=== PATIENT | male | born 1955 | race Caucasian/White ===

== ENCOUNTER → 2016-12-17 | Outpatient (CLI) | payer OTHER ==
[~2016-12-17] MED LIST: BUSPIRONE30 MG PO; CEPHALEXIN500 M1 PO; EFFEXOR XR150 M1 PO; EFFEXOR75 MG PO; GABAPENTIN600 MG PO; HYDROCODONE BIT1 T11 PO; HYZAAR 12.5 MG-1 TA1 PO; LOMOTIL 0.025 M1 TA1 PO; LOSARTAN POTASS1 TA5 PO; MOTRIN800 MG PO; NAPROSYN500 MG PO; NEURONTIN300 MG PO; NORCO 5-325 TA1 EACH PO; PERCOCET 325 MG1 TA7 PO; PRAVACHOL40 MG PO; REXULTI2 MG PO; TRAMADOL HCL50 MG PO; TRAZADONE HYDR100 MG PO; VALIUM10 MG PO; VALIUM2 MG PO; VICODIN 5/500 505 MG PO; VICODIN ES 7501 TAB PO; VOLTAREN50 MG PO; WELLBUTRIN XL150 MG PO; WELLBUTRIN XL300 MG PO; XANAX2 MG PO; ZOFRAN ODT4 MG SL; ZOFRAN4 MG PO
[2016-12-17 14:58] LABS: HEMOGLOBIN 15.3 g/dl (14.0-18.0); MEAN CELL VOLUME 92.6 fl (80.0-94.0); MEAN CORPUSCULAR HGB 31.5 pg (27.0-31.0); MEAN PLATELET VOLUME 9.6 fl (9.6-12.3); PLATELET COUNT AUTOMATED 202 10*3/uL (130-400); RED BLOOD COUNT 4.86 10*6/uL (4.50-5.90); RED CELL DISTRI WIDTH 12.1 % (0-14.5); WHITE BLOOD COUNT 11.8 10*3/uL (4.8-10.8)
[2016-12-17 15:23] LABS: BASOPHIL # 0.1 10*3/uL (0-0.1); BASOPHILS 1 % (0-1); EOSINOPHIL # 0.1 10*3/uL (0-0.4); EOSINOPHILS 1 % (1-4); LYMPHOCYTE # 6.6 10*3/uL (1.3-4.4); MONOCYTE # 0.8 10*3/uL (0.1-1.0); NEUTROPHIL # 4.1 10*3/uL (2.3-7.9); NEUTROPHILS 35 % (47-73); TOTAL CELLS COUNTED 100 #CELLS
[2016-12-17 15:24] LABS: PLATELET SUFFICIENCY NORMAL (NORMAL)
[2016-12-17 15:27] LABS: ALBUMIN 3.8 gm/dl (3.1-4.5); ALKALINE PHOSPHATASE 78 U/L (45-117); BILIRUBIN, TOTAL 0.2 mg/dl (0.2-1.0); BUN 14 mg/dl (7-24); CARBON DIOXIDE 32 mmol/L (21-32); CHLORIDE 101 mmol/L (98-107); EST GLOM FILT AFRICAN AMERICAN > 60 ml/min; GLUCOSE 106 mg/dL (65-99); LDH 164 U/L (87-241); POTASSIUM 4.6 mmol/L (3.5-5.1); SGOT/AST 21 IU/L (3-35); SGPT/ALT 44 U/L (12-78); SODIUM 140 mmol/L (136-145); TOTAL PROTEIN 7.2 gm/dL (6.4-8.2)
== END | disposition home or self-care (01) ==
LOC: LAB 14:41
PROVIDERS: Internal Medicine Hematology & Oncology
DX: D72.820 Lymphocytosis (symptomatic) (principal); C85.80 Other specified types of non-Hodgkin lymphoma, unspecified site; I82.529 Chronic embolism and thrombosis of unspecified iliac vein

== ENCOUNTER → 2017-01-18 | Outpatient (CLI) | payer OTHER ==
[2017-01-18 15:22] LABS: HEMATOCRIT 43.2 % (42.0-52.0); HEMOGLOBIN 14.2 g/dl (14.0-18.0); MEAN CELL VOLUME 94.5 fl (80.0-94.0); MEAN CORPUSCULAR HGB 31.1 pg (27.0-31.0); MEAN CORPUSCULAR HGB CONC 32.9 g/dl (33.0-37.0); MEAN PLATELET VOLUME 10.4 fl (9.6-12.3); PLATELET COUNT AUTOMATED 193 10*3/uL (130-400); RED BLOOD COUNT 4.57 10*6/uL (4.50-5.90); RED CELL DISTRI WIDTH 12.6 % (0-14.5); WHITE BLOOD COUNT 11.4 10*3/uL (4.8-10.8)
[2017-01-18 15:30] LABS: ALBUMIN 3.8 gm/dl (3.1-4.5); ALKALINE PHOSPHATASE 78 U/L (45-117); BILIRUBIN, TOTAL 0.3 mg/dl (0.2-1.0); BUN 12 mg/dl (7-24); CARBON DIOXIDE 31 mmol/L (21-32); CHLORIDE 101 mmol/L (98-107); EST GLOM FILT AFRICAN AMERICAN > 60 ml/min; GLUCOSE 87 mg/dL (65-99); LDH 157 U/L (87-241); POTASSIUM 4.7 mmol/L (3.5-5.1); SGOT/AST 18 IU/L (3-35); SGPT/ALT 26 U/L (12-78); SODIUM 141 mmol/L (136-145); TOTAL PROTEIN 6.9 gm/dL (6.4-8.2)
[2017-01-18 17:05] LABS: BASOPHIL # 0.1 10*3/uL (0-0.1); BASOPHILS 1 % (0-1); EOSINOPHIL # 0.5 10*3/uL (0-0.4); EOSINOPHILS 4 % (1-4); LYMPHOCYTE # 6.2 10*3/uL (1.3-4.4); MONOCYTE # 0.5 10*3/uL (0.1-1.0); NEUTROPHIL # 4.2 10*3/uL (2.3-7.9); NEUTROPHILS 37 % (47-73); TOTAL CELLS COUNTED 100 #CELLS
[2017-01-18 17:06] LABS: PLATELET SUFFICIENCY NORMAL (NORMAL)
== END | disposition home or self-care (01) ==
LOC: LAB 14:00
PROVIDERS: Internal Medicine Hematology & Oncology
DX: I82.5Z9 Chronic embolism and thrombosis of unspecified deep veins of unspecified distal lower extremity (principal); C85.80 Other specified types of non-Hodgkin lymphoma, unspecified site; D72.820 Lymphocytosis (symptomatic)

== ENCOUNTER → 2017-03-21 | Outpatient (CLI) | payer MEDICARE ==
[2017-03-21 14:38] LABS: BASO # 0.1 10*3/uL (0.0-0.1); BASO % 0.6 % (0.0-1.0); EOS # 0.2 10*3/uL (0.0-0.4); EOS % 2.1 % (1.0-4.0); HEMATOCRIT 46.4 % (42.0-52.0); HEMOGLOBIN 15.4 g/dl (14.0-18.0); LYMPH # 4.8 10*3/uL (1.3-4.4); LYMPH % 41.8 % (27.0-41.0); MEAN CELL VOLUME 93.4 fl (80.0-94.0); MEAN CORPUSCULAR HGB CONC 33.2 g/dl (33.0-37.0); MEAN PLATELET VOLUME 9.7 fl (9.6-12.3); MONO # 0.7 10*3/uL (0.1-1.0); MONO % 5.8 % (3.0-9.0); NEUT # 5.7 10*3/uL (2.3-7.9); NEUT % 49.5 % (47.0-73.0); PLATELET COUNT AUTOMATED 192 10*3/uL (130-400); RED BLOOD COUNT 4.97 10*6/uL (4.50-5.90); RED CELL DISTRI WIDTH 12.2 % (0-14.5); WHITE BLOOD COUNT 11.5 10*3/uL (4.8-10.8)
[2017-03-21 15:10] LABS: ALBUMIN 3.9 gm/dl (3.1-4.5); ALKALINE PHOSPHATASE 96 U/L (45-117); BILIRUBIN, TOTAL 0.2 mg/dl (0.2-1.0); BUN 14 mg/dl (7-24); CARBON DIOXIDE 31 mmol/L (21-32); CHLORIDE 101 mmol/L (98-107); EST GLOM FILT AFRICAN AMERICAN > 60 ml/min; GLUCOSE 129 mg/dL (65-99); LDH 130 U/L (87-241); POTASSIUM 4.9 mmol/L (3.5-5.1); SGOT/AST 16 IU/L (3-35); SGPT/ALT 33 U/L (12-78); SODIUM 143 mmol/L (136-145); TOTAL PROTEIN 7.5 gm/dL (6.4-8.2)
== END | disposition home or self-care (01) ==
LOC: LAB 14:17
PROVIDERS: Internal Medicine Hematology & Oncology
DX: C85.80 Other specified types of non-Hodgkin lymphoma, unspecified site (principal); I82.529 Chronic embolism and thrombosis of unspecified iliac vein; D72.820 Lymphocytosis (symptomatic)

== ENCOUNTER → 2017-05-19 | Outpatient (CLI) | payer MEDICARE ==
[2017-05-19 13:20] LABS: BASO # 0.1 10*3/uL (0.0-0.1); BASO % 0.4 % (0.0-1.0); EOS # 0.1 10*3/uL (0.0-0.4); EOS % 1.1 % (1.0-4.0); HEMATOCRIT 47.1 % (42.0-52.0); HEMOGLOBIN 15.8 g/dl (14.0-18.0); LYMPH # 4.6 10*3/uL (1.3-4.4); LYMPH % 37.8 % (27.0-41.0); MEAN CELL VOLUME 93.8 fl (80.0-94.0); MEAN CORPUSCULAR HGB 31.5 pg (27.0-31.0); MEAN CORPUSCULAR HGB CONC 33.5 g/dl (33.0-37.0); MEAN PLATELET VOLUME 10.1 fl (9.6-12.3); MONO # 0.8 10*3/uL (0.1-1.0); MONO % 6.8 % (3.0-9.0); NEUT # 6.5 10*3/uL (2.3-7.9); NEUT % 53.7 % (47.0-73.0); PLATELET COUNT AUTOMATED 193 10*3/uL (130-400); RED BLOOD COUNT 5.02 10*6/uL (4.50-5.90); WHITE BLOOD COUNT 12.1 10*3/uL (4.8-10.8)
[2017-05-19 13:50] LABS: ALBUMIN 4.1 gm/dl (3.1-4.5); BILIRUBIN, TOTAL 0.5 mg/dl (0.2-1.0); BUN 11 mg/dl (7-24); CARBON DIOXIDE 30 mmol/L (21-32); CHLORIDE 99 mmol/L (98-107); EST GLOM FILT AFRICAN AMERICAN > 60 ml/min; GLUCOSE 100 mg/dL (65-99); POTASSIUM 4.6 mmol/L (3.5-5.1); SGOT/AST 19 IU/L (3-35); SGPT/ALT 30 U/L (12-78); SODIUM 137 mmol/L (136-145); TOTAL PROTEIN 7.8 gm/dL (6.4-8.2)
[2017-05-19 13:52] LABS: ALKALINE PHOSPHATASE 105 U/L (45-117); LDH 127 U/L (87-241)
== END | disposition home or self-care (01) ==
LOC: LAB 12:37
PROVIDERS: Internal Medicine Hematology & Oncology
DX: C85.80 Other specified types of non-Hodgkin lymphoma, unspecified site (principal); I82.529 Chronic embolism and thrombosis of unspecified iliac vein; D72.820 Lymphocytosis (symptomatic)

== ENCOUNTER → 2017-07-27 | Outpatient (CLI) | payer MEDICARE ==
[2017-07-27 12:49] LABS: HEMOGLOBIN 13.4 g/dl (14.0-18.0); MEAN CELL VOLUME 95.5 fl (80.0-94.0); MEAN CORPUSCULAR HGB CONC 33.5 g/dl (33.0-37.0); MEAN PLATELET VOLUME 9.7 fl (9.6-12.3); RED BLOOD COUNT 4.19 10*6/uL (4.50-5.90); RED CELL DISTRI WIDTH 12.4 % (0-14.5); WHITE BLOOD COUNT 8.4 10*3/uL (4.8-10.8)
[2017-07-27 13:16] LABS: ALBUMIN 3.4 gm/dl (3.1-4.5); ALKALINE PHOSPHATASE 109 U/L (45-117); BUN 8 mg/dl (7-24); CHLORIDE 98 mmol/L (98-107); CHOLESTEROL 201 mg/dL (<200); CREATININE 0.95 mg/dL (0.70-1.30); HDL CHOLESTEROL 44 mg/dl (40-60); LDL CHOLESTEROL 121 mg/dL (9-159); POTASSIUM 3.6 mmol/L (3.5-5.1); SGOT/AST 15 IU/L (3-35); SGPT/ALT 27 U/L (12-78); SODIUM 138 mmol/L (136-145); TOTAL PROTEIN 7.1 gm/dL (6.4-8.2); TRIGLYCERIDES 182 mg/dl (<150); VLDL CHOLESTEROL 36 mg/dL (6-40)
== END | disposition home or self-care (01) ==
LOC: LAB 12:15
PROVIDERS: Family Medicine
DX: Z12.5 Encounter for screening for malignant neoplasm of prostate (principal); E78.00 Pure hypercholesterolemia, unspecified; Z79.899 Other long term (current) drug therapy

== ENCOUNTER 2017-09-13 12:43 | Emergency (ER) | payer MEDICARE ==
[~2017-09-13] VITALS: Ht 185.4 cm; Wt 74.8 kg
[~2017-09-13 12:43] MED LIST changes: +XANAX2 M1 PO; -XANAX2 MG PO
[2017-09-13 14:13] LABS: HEMATOCRIT 45.1 % (42.0-52.0); HEMOGLOBIN 15.2 g/dl (14.0-18.0); MEAN CELL VOLUME 91.9 fl (80.0-94.0); MEAN CORPUSCULAR HGB CONC 33.7 g/dl (33.0-37.0); MEAN PLATELET VOLUME 9.6 fl (9.6-12.3); PLATELET COUNT AUTOMATED 227 10*3/uL (130-400); RED BLOOD COUNT 4.91 10*6/uL (4.50-5.90); RED CELL DISTRI WIDTH 12.6 % (0-14.5); WHITE BLOOD COUNT 13.3 10*3/uL (4.8-10.8)
[2017-09-13 14:30] LABS: ACETAMINOPHEN (TYLENOL) 2.4 ug/ml (10-30); ALBUMIN 4.2 gm/dl (3.1-4.5); ALKALINE PHOSPHATASE 108 U/L (45-117); BUN 16 mg/dl (7-24); CHLORIDE 98 mmol/L (98-107); CREATININE 1.63 mg/dL (0.70-1.30); POTASSIUM 3.3 mmol/L (3.5-5.1); SGOT/AST 33 IU/L (3-35); SGPT/ALT 61 U/L (12-78); SODIUM 138 mmol/L (136-145); TOTAL PROTEIN 8.1 gm/dL (6.4-8.2)
[2017-09-13 14:35] LABS: ETHYL ALCOHOL < 3.0 mg/dl (<3)
[2017-09-13 14:36] LABS: BASOPHILS 1 % (0-1); PLATELET SUFFICIENCY NORMAL (NORMAL); TOTAL CELLS COUNTED 100 #CELLS
[2017-09-13 16:56] LABS: BILIRUBIN 1+ (NEGATIVE); BLOOD NEGATIVE (NEGATIVE); CLARITY CLEAR (CLEAR); COLOR YELLOW (YELLOW); GLUCOSE NEGATIVE (NEGATIVE); KETONE 1+ (NEGATIVE); LEUKO ESTERASE NEGATIVE (NEGATIVE); NITRITE NEGATIVE (NEGATIVE); PH 5.5 (5.0-9.0); SPECIFIC GRAVITY 1.025 (1.005-1.030); UROBILINOGEN 0.2 E.U./dl (0.2-1.0)
[2017-09-13 17:07] LABS: URINE AMPHETAMINES < 1000 (1000ng/ml); URINE BARBITURATES < 200 (200ng/ml); URINE BENZODIAZEPINES > 200 (200ng/ml); URINE CANNABINOIDS (THC) > 50 (50ng/ml); URINE COCAINE < 300 (300ng/ml); URINE METHADONE < 300 (300ng/ml); URINE OPIATES > 300 (300ng/ml)
[2017-09-13 17:15] LABS: URINE PHENCYCLIDINE < 25 (25ng/ml)
[2017-09-13 17:23] LABS: BACTERIA TRACE; EPITHELIAL CELLS 0-2
[2017-09-13] MEDS ORDERED: SUBOXONE 8 MG-1 EACH SL (20:05)
== END 2017-09-13 19:10 | disposition home health service (06) ==
LOC: ED 12:43
PROVIDERS: Physician Assistant
DX: F33.3 Major depressive disorder, recurrent, severe with psychotic symptoms (principal); F17.200 Nicotine dependence, unspecified, uncomplicated; F10.10 Alcohol abuse, uncomplicated; Z79.899 Other long term (current) drug therapy

== ENCOUNTER 2017-09-13 17:31 | Inpatient (IN) | payer MEDICARE ==
[~2017-09-13] VITALS: Ht 185.4 cm; Wt 111.1 kg
--- NOTE | ~2017-09-13 | DS ---
[place], [place] DISCHARGE SUMMARY NAME: LUIS VERMA UNIT #: [id number] ROOM: 309 DOCTOR: DUSTIN ROSE MD BIRTHDATE: [birth year] DOS: 09/19/2017 CHIEF COMPLAINT: "I am here because of depression and I keep blacking out." HISTORY OF PRESENT ILLNESS: This is a 62-year-old white male who presented to the Emergency Room at [facility] with a chief complaint of being increasingly depressed. He states that he has been hallucinating and seeing people. He has been under increased stress due to chronic pain and the recent of his son by drug overdose in the parking lot of the Emergency Room at [facility]. The patient himself has a lengthy psychiatric history and has been followed by for a long time and has been treated for depression and chronic pain. He also has a past history of substance abuse that includes opiates and alcohol. He reports poor sleep and appetite, energy, anhedonia, hopeless and helpless feelings, crying spells and inability to cope. He notes that he has pain on most days. He rates it as a 7-1/2 on a scale of 1-10 with 10 being the worst pain ever. He also has complaints of blacking out whenever he exerts himself. He was admitted to rule out organic factors to stabilize on medication, returning home when stable. PAST MEDICAL HISTORY: Remarkable for hyperlipidemia, hypertension, polysubstance abuse and depression. SUMMARY OF HOSPITAL COURSE: The patient was admitted to the unit where his Elavil was discontinued as well as Remeron and Vraylar. He was started on Zyprexa 2.5 in the morning and 5 mg at bedtime as well as Cymbalta 30 mg at bedtime. The Zyprexa was used to both augment the effectiveness of the antidepressant as well as decrease some of the psychotic symptoms. Cymbalta was rapidly titrated up to 60 mg b.i.d. to impact positively on depression, anxiety and pain control. With the combination of Cymbalta and Zyprexa, the patient had a significant improvement. Sleep and appetite normalized. He rated his pain now on a scale of 1-10 as of 3. He was able to function more independently and interact with others. He voiced positive plans for the future. He denied any type of side effects. There was no sedation, somnolence, extrapyramidal symptoms or tardive dyskinesia. He voiced a readiness to return home and was discharged on TuesdaySeptember 19. All of his prescriptions have been e-scribed. MENTAL STATUS AT DISCHARGE: The patient is alert and oriented to person, place, and time. Mood is euthymic. Affect appropriate. There are no symptoms of dinora or hypomania. There are no overt auditory or visual hallucinations. No delusions were voiced. No paranoia was present. Memory was fully intact. FINAL DIAGNOSES: Major depression, recurrent; dysthymic disorder and chronic pain syndrome. DISPOSITION: The patient is to return home. Scripts have been e-scribed. He will follow up with provider of his choice. [place], [place] DISCHARGE SUMMARY NAME: LUIS VERMA UNIT #: [id number] ROOM: 309 DOCTOR: DUSTIN ROSE MD BIRTHDATE: [birth year] DUSTIN ROSE MD CM:DISCHARG [id number] DUSTIN ROSE MD 09/19/17 1019 interface
--- NOTE | ~2017-09-13 | WRIGHTHP ---
[place], [place] PATIENT HISTORY AND PHYSICAL EXAM NAME: LUIS VERMA UNIT #: [id number] ROOM: 309 DOCTOR: DUSTIN ROSE MD BIRTHDATE: [birth year] DOS: 09/14/2017 CHIEF COMPLAINT: "I am here because of depression and I keep blacking out." HISTORY OF PRESENT ILLNESS: This is a 62-year-old white male who presented to the Emergency Room at [facility] with a chief complaint of being increasingly depressed. He also states that he has been hallucinating and seeing people. He has been under increasing stress that includes chronic pain and the recent of his son by drug overdose in the parking lot of the Emergency Room at [facility]. The patient himself has a lengthy psychiatric history and has been followed by Dr. Arellano for sometime for depression as well as for chronic pain. The patient has a past history of substance abuse with opiates and alcohol being his drugs of choice. The patient reports poor sleep and appetite, energy, anhedonia, hopeless, helpless feelings, crying spells, and inability to cope. From a physical standpoint, he complains of pain that is generalized in his body and most mornings rates it as a 7-1/2 on a scale of 1-10 with 10 being the worst pain ever. Additionally, he has complaints of blacking out when he exerts himself; however, he states that Dr. Godfrey has not done any medical workup on this. He is admitted now to rule out any type of organic factors to attempt to restabilize on medication, to engage in individual and parisi milieu activity, to set up substance abuse followup, returning home when stable. PAST MEDICAL HISTORY: Remarkable for hyperlipidemia, hypertension, polysubstance abuse, and depression. MENTAL STATUS: The patient is alert and oriented. Mood does seem to be depressed. Affect is rather flat and blunted and he is rather matter of fact in his presentation. This morning, he did not complain of any hallucinations and I did not see any dinora or hypomania present. There is no overt delusions or paranoia and for the most part, memory is intact. DIAGNOSIS: Major depression, recurrent and polysubstance dependence. PLAN: I will discontinue his Remeron and Vraylar that were started yesterday. I did discuss with him the possibility of starting Cymbalta in lieu of the Elavil that he had previously been on and he agreed to try that. We will start Cymbalta at a higher dose 30 mg twice daily with a plan to aggressively titrate upward. I will augment this with Zyprexa 2.5 mg in the morning and 5 mg at night to intensify the antidepressant effects as well as to aid sleep and decrease anxiety. I will give him his Xanax 2 mg 3 times a day. Follow up as far as how this is being prescribed in his outpatient pharmacy. I will have Dr. Arellano maintain the Xanax per his decision. I will check a Neurontin level in the morning. Discontinue p.r.n. Ativan, so he is not utilizing too many addictive agents. I will substitute hydroxyzine in its place. We will attempt to engage in individual and parisi milieu activity, set up outpatient followup as well as follow up for the substance abuse. [place], [place] PATIENT HISTORY AND PHYSICAL EXAM NAME: LUIS VERMA UNIT #: [id number] ROOM: 309 DOCTOR: DUSTIN ROSE MD BIRTHDATE: [birth year] DUSTIN ROSE MD CM:HISPHYS:PATIENT HISTORY AND PHYSICAL EXAMINATION 0 8 DUSTIN ROSE MD 09/14/1749 interface
--- NOTE | ~2017-09-13 | PR ---
[place], [place] PROGRESS NOTE NAME: LUIS VERMA UNIT #: [id number] ROOM: 309 DOCTOR: OTTONIEL RICCI,WERO BIRTHDATE: [birth year] DOS: 09/18/2017 CHIEF COMPLAINT: "I'm feeling better." SUBJECTIVE: The patient is seen this morning in dining area, readily engaged in conversation. States that he is feeling better. Mood has been better, did sleep better last night and he has some swelling on his left leg. He has a history of DVT in the past as per his account. So, we shall have a consult to rule out any DVTs and he has no other questions at the present. MENTAL STATUS EXAMINATION: The patient is alert, oriented to person, place, time. Fair eye contact, good conversation. Mood trending towards euthymia, somewhat anxious about his leg swelling, no dinora or hypomania. PLAN: We shall get a consult to rule out any DVTs and continue his medicines at present. Keep engaging him in parisi milieu. WERO ALCAZAR MD CM:TITUS [id number] WERO ALCAZAR MD 09/18/17 1316 interface
--- NOTE | ~2017-09-13 | PR ---
[place], [place] PROGRESS NOTE NAME: LUIS VERMA UNIT #: [id number] ROOM: 309 DOCTOR: QUENTIN BENAVIDEZ,MY BIRTHDATE: [birth year] DOS: 09/16/2017 CHIEF COMPLAINT: "I like my Vicodin back and not taking anything else." SUMMARY OF THE VISIT: The patient was interviewed in the dining area. States he slept well last night and pain has much improved, but still has some achiness at night, said he would want to have his Vicodin back because that is the only thing that has been worked for him. Denies any thoughts of harming himself or others. Denies seeing or hearing things. Still grieving his son's and would cheer up at times. MENTAL STATUS: Alert, awake and oriented x 3. Mood is trending towards euthymia with appropriate affect. There were no overt auditory or visual hallucinations. No delusions, nor paranoia noted. Memory for the most part is intact. There is no evidence of extrapyramidal symptoms or other side effects from medications. PLAN: We will increase Cymbalta to 60 mg b.i.d. to maximize his antidepressant and anti-pain affects. We will also continue Zyprexa 2.5 mg. We will continue to engage the patient in individual and parisi milieu activity with the plan is to return him home sometime on Tuesday. MY QUENTIN, DO DUSTIN ROSE MD CM:PNTRANS [id number] MY QUENTIN DO 09/16/17 1253 interface
--- NOTE | ~2017-09-13 | PR ---
[place], [place] PROGRESS NOTE NAME: LUIS VERMA UNIT #: [id number] ROOM: 309 DOCTOR: OTTONIEL RICCI,WERO BIRTHDATE: [birth year] DOS: CHIEF COMPLAINT: "I slept better last night" SUBJECTIVE: The patient is a 62-year-old male admitted with depression and polysubstance dependence, started on Cymbalta, which was titrated to 60 mg b.i.d. and Zyprexa as well. Today, he reports that he is still feeling depressed, though slept better last night. He had his breakfast this morning. He has been coming out to the dining area and has been socializing. MENTAL STATUS EXAMINATION: The patient is alert, oriented, readily engaged in conversation. Fair eye contact. Mood trending towards euthymia. Affect is still blunted. No evidence of psychosis at present. No dinora or hypomania. Memory is intact. PLAN: The patient is showing some improvement, though needs further stabilization. Shall continue his medicines, continue his care and keep engaging him in parisi milieu. WERO ALCAZAR MD CM:PNMICHELLE [id number] WERO ALCAZAR MD 09/17/17 1050 interface
--- NOTE | ~2017-09-13 | PR ---
[place], [place] PROGRESS NOTE NAME: LUIS VERMA UNIT #: [id number] ROOM: 309 DOCTOR: DUSTIN ROSE MD BIRTHDATE: [birth year] DOS: 09/15/2017 CHIEF COMPLAINT: "I slept better, I think I feel better, thank you." SUMMARY OF THE VISIT: The patient was interviewed as he was walking down the patel and then later as we sat down together in the group therapy room. He smiled upon approach and reported to me that he did sleep better and he feels slightly better than he did upon admission. He also rates his pain as lessening since the start of the Cymbalta and the Suboxone. He convincingly denies any medication side effects and no side effects are noted. There is no sedation, somnolence, lethargy, extrapyramidal symptoms or tardive dyskinesia. MENTAL STATUS: He is alert and oriented. Mood does seem to be trending towards euthymia. Affect is more appropriate. He was actually able to joke and laugh with me. There were no symptoms of hypomania or dinora. There were no overt auditory or visual hallucinations. No delusions, no paranoia. Memory for the most part is fully intact. PLAN: I will increase the Cymbalta from 30 mg twice daily to 30 mg in the morning and 60 mg at bedtime to attempt to maximize its antidepressant and antipain effects. I likewise will simultaneously increase the Zyprexa to 2.5 mg in the morning and 7.5 mg at bedtime to augment the effectiveness of the Cymbalta. We will continue to engage in individual and parisi milieu activity with the plan to return home or the least restrictive environment when psychiatrically stable. DUSTIN ROSE MD CM:PNTRANS [id number] DUSTIN RSOE MD 09/15/17 1108 interface
[2017-09-13 20:00] VITALS: BP 160/87
[2017-09-13] MEDS ORDERED: SUBOXONE 8 MG-1 EACH SL (20:05)
[2017-09-13 20:08] VITALS: BP 160/87
[2017-09-14 07:54] LABS: ALBUMIN 3.3 gm/dl (3.1-4.5); CREATININE 1.48 mg/dL (0.70-1.30); POTASSIUM 3.9 mmol/L (3.5-5.1); TOTAL PROTEIN 6.5 gm/dL (6.4-8.2)
[2017-09-14 08:00] VITALS: BP 119/72
[2017-09-14 09:58] LABS: VITAMIN D, 25-HYDROXY 36.3 ng/mL (30-100)
[2017-09-14 20:00] VITALS: BP 105/61
[2017-09-15 06:03] LABS: BUN 17 mg/dl (7-24); CHLORIDE 101 mmol/L (98-107); CREATININE 1.26 mg/dL (0.70-1.30); POTASSIUM 3.7 mmol/L (3.5-5.1); SODIUM 140 mmol/L (136-145)
[2017-09-15 08:50] VITALS: BP 106/51
[2017-09-15 20:43] VITALS: BP 108/59
[2017-09-16 07:50] VITALS: BP 117/69
[2017-09-16] MEDS ORDERED: DULOXETINE HCL60 MG PO ×2 (09:36)
[2017-09-16] MEDS ORDERED: ZYPREXA2.5 MG PO (09:36)
[2017-09-16] MEDS ORDERED: OLANZAPINE7.5 M1 PO (09:36)
[2017-09-16 20:00] VITALS: BP 107/62
[2017-09-17 08:01] VITALS: BP 110/60
[2017-09-17 12:45] VITALS: BP 144/88
[2017-09-17 19:50] VITALS: BP 101/66
[2017-09-18 03:06] LABS: NEURONTIN (GABAPENTIN) 10.8 ug/mL (4.0-16.0)
[2017-09-18 08:00] VITALS: BP 132/80
[2017-09-18 20:05] VITALS: BP 102/63
[2017-09-19 07:46] VITALS: BP 118/63
[2017-09-19] MEDS ORDERED: KEFLEX 500 MG E2 CAP PO (10:24)
== END 2017-09-19 12:04 | disposition home or self-care (01) | DRG 885 ==
LOC: 3N 17:31
PROVIDERS: Internal Medicine; ADMIT Psychiatry & Neurology Psychiatry
DX: F33.3 Major depressive disorder, recurrent, severe with psychotic symptoms (principal); N17.0 Acute kidney failure with tubular necrosis; L03.116 Cellulitis of left lower limb; F19.20 Other psychoactive substance dependence, uncomplicated; I10 Essential (primary) hypertension; E78.5 Hyperlipidemia, unspecified; E87.6 Hypokalemia; G47.00 Insomnia, unspecified; M79.7 Fibromyalgia; G89.21 Chronic pain due to trauma; F17.200 Nicotine dependence, unspecified, uncomplicated; F34.1 Dysthymic disorder; Z80.1 Family history of malignant neoplasm of trachea, bronchus and lung; Z86.718 Personal history of other venous thrombosis and embolism

== ENCOUNTER → 2017-10-25 | Outpatient (CLI) | payer MEDICARE ==
[~2017-10-25] MED LIST changes: +DULOXETINE HCL60 MG PO; +KEFLEX 500 MG E2 CAP PO; +OLANZAPINE7.5 M1 PO; +SUBOXONE 8 MG-1 EACH SL; +ZYPREXA2.5 MG PO
[2017-10-25 15:02] LABS: ALBUMIN 3.9 gm/dl (3.1-4.5); ALKALINE PHOSPHATASE 98 U/L (45-117); BUN 12 mg/dl (7-24); CHLORIDE 99 mmol/L (98-107); CHOLESTEROL 249 mg/dL (<200); CPK 32 U/L (39-308); CREATININE 1.05 mg/dL (0.70-1.30); HDL CHOLESTEROL 60 mg/dl (40-60); LDL CHOLESTEROL 150 mg/dL (9-159); POTASSIUM 4.3 mmol/L (3.5-5.1); SGOT/AST 14 IU/L (3-35); SGPT/ALT 22 U/L (12-78); SODIUM 137 mmol/L (136-145); TOTAL PROTEIN 7.4 gm/dL (6.4-8.2); TRIGLYCERIDES 194 mg/dl (<150); VLDL CHOLESTEROL 39 mg/dL (6-40)
== END | disposition home or self-care (01) ==
LOC: LAB 14:17
PROVIDERS: Family Medicine
DX: Z12.5 Encounter for screening for malignant neoplasm of prostate (principal); I10 Essential (primary) hypertension; E78.00 Pure hypercholesterolemia, unspecified; C85.90 Non-Hodgkin lymphoma, unspecified, unspecified site

== ENCOUNTER → 2017-11-17 | Outpatient (CLI) | payer MEDICARE ==
[2017-11-18 08:08] LABS: PROSTATE SPECIFIC AG FREE 0.45 ng/mL; PROSTATE SPECIFIC AG, SERUM 4.8 ng/mL (0.0-4.0)
== END | disposition home or self-care (01) ==
LOC: LAB 13:19
PROVIDERS: Family Medicine
DX: R97.20 Elevated prostate specific antigen [PSA] (principal)

== ENCOUNTER → 2018-07-10 | Outpatient (CLI) | payer MEDICARE ==
[2018-07-10 12:31] LABS: HEMATOCRIT 43.9 % (42.0-52.0); HEMOGLOBIN 14.6 g/dl (14.0-18.0); MEAN CORPUSCULAR HGB 31.3 pg (27.0-31.0); MEAN CORPUSCULAR HGB CONC 33.3 g/dl (33.0-37.0); RED BLOOD COUNT 4.67 10*6/uL (4.50-5.90); RED CELL DISTRI WIDTH 12.7 % (0-14.5); WHITE BLOOD COUNT 11.1 10*3/uL (4.8-10.8)
[2018-07-10 12:49] LABS: ALBUMIN 3.7 gm/dl (3.1-4.5); BUN 11 mg/dl (7-24); CHLORIDE 101 mmol/L (98-107); CHOLESTEROL 217 mg/dL (<200); CREATININE 0.96 mg/dL (0.70-1.30); POTASSIUM 4.1 mmol/L (3.5-5.1); SGOT/AST 15 IU/L (3-35); SGPT/ALT 39 U/L (12-78); SODIUM 138 mmol/L (136-145); TRIGLYCERIDES 126 mg/dl (<150); VLDL CHOLESTEROL 25 mg/dL (6-40)
[2018-07-10 12:54] LABS: ALKALINE PHOSPHATASE 94 U/L (45-117); CPK 31 U/L (39-308); HDL CHOLESTEROL 68 mg/dl (40-60); LDL CHOLESTEROL 124 mg/dL (9-159); TOTAL PROTEIN 7.3 gm/dL (6.4-8.2)
== END | disposition home or self-care (01) ==
LOC: LAB 11:27
PROVIDERS: Family Medicine
DX: Z12.5 Encounter for screening for malignant neoplasm of prostate (principal); E78.00 Pure hypercholesterolemia, unspecified; E55.9 Vitamin D deficiency, unspecified

== ENCOUNTER → 2018-10-09 | Outpatient (CLI) | payer OTHER ==
[~2018-10-09] MED LIST changes: +AMBIEN5 MG PO; +BUSPAR5 MG PO; +GABAPENTIN800 MG PO; +REXULTI3 MG PO; +VENLAFAXINE75 M1 PO
[2018-10-09 12:54] LABS: BASO # 0.1 10*3/uL (0.0-0.1); BASO % 0.5 % (0.0-1.0); EOS # 0.1 10*3/uL (0.0-0.4); EOS % 0.9 % (1.0-4.0); HEMATOCRIT 42.6 % (42.0-52.0); HEMOGLOBIN 14.7 g/dl (14.0-18.0); LYMPH # 4.7 10*3/uL (1.3-4.4); LYMPH % 42.9 % (27.0-41.0); MEAN CELL VOLUME 92.8 fl (80.0-94.0); MEAN CORPUSCULAR HGB CONC 34.5 g/dl (33.0-37.0); MEAN PLATELET VOLUME 9.9 fl (9.6-12.3); MONO # 0.8 10*3/uL (0.1-1.0); MONO % 6.8 % (3.0-9.0); NEUT # 5.4 10*3/uL (2.3-7.9); NEUT % 48.5 % (47.0-73.0); PLATELET COUNT AUTOMATED 216 10*3/uL (130-400); RED BLOOD COUNT 4.59 10*6/uL (4.50-5.90); RED CELL DISTRI WIDTH 12.9 % (0-14.5); WHITE BLOOD COUNT 11.1 10*3/uL (4.8-10.8)
[2018-10-09 13:24] LABS: ALBUMIN 3.6 gm/dl (3.1-4.5); BUN 13 mg/dl (7-24); CHLORIDE 103 mmol/L (98-107); CHOLESTEROL 211 mg/dL (<200); CREATININE 0.97 mg/dL (0.70-1.30); POTASSIUM 3.8 mmol/L (3.5-5.1); SGOT/AST 10 IU/L (3-35); SGPT/ALT 32 U/L (12-78); SODIUM 139 mmol/L (136-145); TRIGLYCERIDES 199 mg/dl (<150); VLDL CHOLESTEROL 40 mg/dL (6-40)
[2018-10-09 13:26] LABS: ALKALINE PHOSPHATASE 94 U/L (45-117); CPK 33 U/L (39-308); HDL CHOLESTEROL 62 mg/dl (40-60); LDL CHOLESTEROL 109 mg/dL (9-159)
== END | disposition home or self-care (01) ==
LOC: LAB 12:07
PROVIDERS: Family Medicine; Internal Medicine Hematology & Oncology
DX: I10 Essential (primary) hypertension (principal); C85.80 Other specified types of non-Hodgkin lymphoma, unspecified site; I82.5Z9 Chronic embolism and thrombosis of unspecified deep veins of unspecified distal lower extremity; D72.820 Lymphocytosis (symptomatic); K04.7 Periapical abscess without sinus; E78.00 Pure hypercholesterolemia, unspecified; E55.9 Vitamin D deficiency, unspecified

== ENCOUNTER 2018-11-08 15:03 | Inpatient (IN) | payer OTHER ==
--- NOTE | ~2018-11-08 | WRIGHTHP ---
[place], [place] PATIENT HISTORY AND PHYSICAL EXAM [id number] UN[facility] #: [id number] ROOM: 404 DOCTOR: SHRUTHI ROMANO MD BIRTHDATE: [birth year] DOS: 11/08/2018 HISTORY OF PRESENT ILLNESS: The patient is a 63-year-old gentleman with a past medical history of: 1. Mixed hyperlipidemia. 2. Benign essential hypertension. 3. Polysubstance abuse. 4. Depression. The patient presented to the Emergency Department at [facility] with recurrent nausea and vomiting starting this morning, feeling sick and weak. The patient was evaluated in the ER and found to be somewhat hypovolemic and with recurrent vomiting and not able to keep any food down, was recommended for admission for hydration and control of his symptoms. REVIEW OF SYSTEMS: GASTROINTESTINAL: recurrent nausea, vomiting. RESPIRATORY: No increasing shortness of breath or wheezing. CARDIOVASCULAR: No chest pain, no palpitations. ALLERGIES: No known drug allergies. PHYSICAL EXAMINATION: GENERAL: Alert, oriented x 3, in no visible distress. VITAL SIGNS: Blood pressure 148/70, heart rate 76 beats per minute, breathing 18 times per minute, temperature 98 degrees Fahrenheit. HEENT AND NECK: Extraocular movements are intact. Sclerae are anicteric. Oral mucosa is moist and clean. No obvious facial weakness. Neck is supple without any lymphadenopathy. No thyromegaly. No JVD. No carotid arterial bruits. LUNGS: Clear to auscultation. No wheezing. No rhonchi. CARDIOVASCULAR SYSTEM: Heart rate is regular in rate and rhythm. S1 and S2 normally audible. No significant murmur or any other abnormal cardiac sounds. ABDOMEN: Soft, nontender. No obvious organomegaly. Bowel sounds are present. No obvious herniation. EXTREMITIES: Without significant cyanosis or edema. Warm to touch. CENTRAL NERVOUS SYSTEM: Alert and oriented x 3. Cranial nerves II-XII are intact. Speech is normal. The patient is able to move all extremities. Normal muscle strength. Deep tendon reflexes are equal on both sides. Plantars were downgoing. IMPRESSION AND PLAN: 1. The patient with recurrent intractable nausea, vomiting and dehydration with hypovolemia, to be treated with hydration with normal saline and IV Zofran to control his vomiting and the patient will be followed closely. 2. Polysubstance abuse. The patient to be continued on Suboxone. 3. Major depression, recurrent. The patient is being continued on Zyprexa and Cymbalta. 4. Mixed hyperlipidemia, treated with pravastatin. 5. Benign essential hypertension. Blood pressure is to be monitored and treated accordingly. [place], [place] PATIENT HISTORY AND PHYSICAL EXAM NAME: LUIS VERMA UNIT #: [id number] ROOM: [facility] DOCTOR: SHRUTHI ROMANO MD BIRTHDATE: [birth year] SHRUTHI ROMANO MD CM:HISPHYS:PATIENT HISTORY AND PHYSICAL EXAMINATION 34 20 SHRUTHI ROMANO MD 11/08/182121 interface
--- NOTE | ~2018-11-08 | PR ---
[place], [place] PROGRESS NOTE NAME: LUIS VERMA UNIT #: [id number] ROOM: 405 DOCTOR: SHRUTHI ROMANO MD BIRTHDATE: [birth year] DOS: 11/09/2018 SUBJECTIVE: The patient is somewhat better, still has significant nausea, but no more vomiting, has barely been able to eat anything today, just a piece of toast. OBJECTIVE: GENERAL APPEARANCE: The patient is alert and oriented x 3, in no visible distress. VITAL SIGNS: Blood pressure 138/57, heart rate of 72 beats per minute, breathing normally, afebrile. HEENT AND NECK: Exam within normal limits. CARDIOVASCULAR SYSTEM: Heart rate is regular in rate and rhythm. S1 and S2 normally audible. LUNGS: Clear to auscultation. ABDOMEN: Some mild epigastric tenderness on deep palpation. No rigidity, guarding or rebound tenderness. EXTREMITIES: Without significant cyanosis or edema. IMPRESSION: 1. Leukocytosis with white cell count of 18,700 from uncertain etiology. I will continue to follow. I will check a CT of his abdomen and pelvis for further evaluation. 2. Mild right upper quadrant tenderness. I will consider cholecystitis and get surgical consult. 3. Mixed hyperlipidemia, followed and treated. 4. Benign essential hypertension. Blood pressure is being treated and controlled and monitored. 5. Polysubstance abuse. The patient remains on Suboxone. 6. Major depression, recurrent, mild to moderate, treated with olanzapine, which is Zyprexa and Cymbalta. SHRUTHI ROMANO MD CM:PNTRANS [id number] SHRUTHI ROMANO MD 11/10/18 0622 interface
--- NOTE | ~2018-11-08 | PR ---
[place], [place] PROGRESS NOTE NAME: LUIS VERMA UNIT #: [id number] ROOM: 405 DOCTOR: SHRUTHI ROMANO MD BIRTHDATE: [birth year] DOS: 11/10/2018 SUBJECTIVE: The patient is able to keep some food down, but he still has significant nausea. His vomiting has stopped. OBJECTIVE: GENERAL APPEARANCE: The patient is alert and oriented x 3, in no visible distress. VITAL SIGNS: Blood pressure 154/65, heart rate 75 beats per minute, breathing 18 times per minute, and temperature of 98 degrees Fahrenheit. HEENT AND NECK: Exam within normal limits. CARDIOVASCULAR SYSTEM: Heart rate is regular in rate and rhythm. S1 and S2 normally audible. LUNGS: Clear to auscultation. ABDOMEN: Soft, nontender. No obvious organomegaly. Bowel sounds are present. EXTREMITIES: Without significant cyanosis or edema. IMPRESSION: 1. Recurrent nausea, vomiting with normal CT scan of the abdomen and pelvis. I am checking a HIDA scan of the liver and gallbladder to look at the ejection fraction and see if patient has biliary dyskinesia and if he requires a cholecystectomy because of his persistent symptoms of nausea, which is intractable. Consulted Dr. Mcclain also on the case. 2. Suspicion of cholecystitis and gallbladder dysfunction. Surgery has been consulted. 3. Mixed hyperlipidemia, has been followed and treated. 4. Benign essential hypertension, being treated and controlled. 5. Polysubstance abuse. The patient stays on Suboxone. 6. Major depression, recurrent, moderate, treated with Zyprexa and Cymbalta. SHRUTHI ROMANO MD CM:PNTRANS 1252 0317 SHRUTHI ROMANO MD 11/11/18 0652 interface
--- NOTE | ~2018-11-08 | EKG ---
[place], [place] ELECTROCARDIOGRAM REPORT NAME: LUIS VERMA UNIT #: [id number] ROOM: 404 DOCTOR: FRAN DRAFT REPORT BIRTHDATE: [birth year] [facility] Test Date: 2018-11-08 Test Time: 16:08:13 Pat Name: LUIS VERMA Department: Room: 404 Gender: M Commercial Underwriter: [id number] : 1955 Requested By: JAMILA SIDDIQUI Order Number: [id number] Reading MD: Ten Nettles MD Measurements Intervals [place] Rate: 77 P: 49 TX: 156 QRS: -34 QRSD: 98 T: 50 QT: 406 QTc: 460 Interpretive Statements Sinus rhythm Atrial premature complex Left axis deviation Baseline wander in lead(s) V1 Electronically Signed On 11-09-2018 4:01:49 PST by Ten Nettles MD CM:EKGRPT:ELECTROCARDIOGRAM REPORT [id number] JAMILA JAIMES DRAFT REPORT JAMILA SIDDIQUI DO
--- NOTE | ~2018-11-08 | CON ---
[place], [place] REPORT OF CONSULTATION NAME: LUIS VERMA UNIT #: [id number] ROOM: 405 DOCTOR: GIUSEPPE ROMANO MD BIRTHDATE: [birth year] DOS: HISTORY OF PRESENT ILLNESS: The patient has presented with chief complaint of relentless epigastric distress, right upper quadrant pain. The patient had a panel of blood work done. Lactic acid was 4.8. Chest x-ray was normal. Rapid flu was nonreactive. CBC: White blood cell 14. H and H of 14 and 44. INR was 1.0. Comprehensive metabolic panel, electrolyte balanced, lipase within normal limits. BNP 171. Basic metabolic electrolytes balanced. Blood cultures were no growth. Labs and records have been reviewed. CT scan of the abdomen has not found any pathology of concern except diverticulosis diffusely throughout the colon without diverticulitis, which is of concern if it is a contributor to abdominal pain and possibility of subclinical diverticulitis; however, sonographic study of gallbladder is still today pending. PAST MEDICAL HISTORY: Associated with gastroenteritis, fibromyalgia, hypertension, hyperlipidemia, diverticulosis of severe degree. PAST SURGICAL HISTORY: Arthroplasty, left knee, history of cruciate ligament repair. SOCIAL HISTORY: Alcohol and tobacco. FAMILY HISTORY: Noncontributory directly to him. REVIEW OF SYSTEMS: HEENT: Denies double vision, blurred vision. RESPIRATORY: Denies shortness of breath. CARDIOVASCULAR: Denies chest pain. DIGESTIVE SYSTEM: No hematemesis, no hematochezia. Right upper quadrant pain, nonspecific abdominal pain. PHYSICAL EXAMINATION: VITAL SIGNS: Stable. HEENT: Nontraumatic. LUNGS: Vesicular breath sounds of both lungs. HEART: Normal sinus rhythm, no gallop, no murmur. ABDOMEN: Soft. No hepato-organomegaly. Nonspecific tenderness. EXTREMITIES: No cyanosis, no pedal edema. NEUROLOGIC: Alert, oriented to time, place, and person. LABORATORY DATA: Labs reviewed. Records reviewed. IMPRESSION: Nonspecific abdominal pain, severe diverticulosis. Labs have been reviewed. Records have been reviewed. Electrolytes and basic metabolic panel and comprehensive metabolic panel have been addressed. There is no evidence of liver function abnormalities. I trust that he is experiencing some nonspecific abdominal pain secondary to his presence of diverticulosis. If his sonogram of gallbladder come back, he has already told me that he would like to go home and follow up as outpatient and I agree with that because he could have subclinical diverticulitis and treatment of such may be needed. Therefore, although his [place], [place] REPORT OF CONSULTATION NAME: LUIS VERMA UNIT #: [id number] ROOM: 405 DOCTOR: ROSALINA RICCI,GIUSEPPE BIRTHDATE: [birth year] blood work belongs to yesterday, his CBC is going to be pending today. If white blood cell normal we will do that. Otherwise, he will be receiving antibiotics. GIUSEPPE ROMANO MD CM:CONSTR:REPORT OF CONSULTATION 1621 11/11/18 0751 interface
--- NOTE | ~2018-11-08 | DS ---
[place], [place] DISCHARGE SUMMARY NAME: LUIS VERMA UNIT #: [id number] ROOM: 405 DOCTOR: SHRUTHI ROMANO MD BIRTHDATE: [birth year] DOS: 11/11/2018 DISCHARGE DIAGNOSES: 1. The patient signed out against medical advice before he could be discharged. 2. Recurrent nausea, vomiting with normal CT scan of the abdomen and pelvis and ultrasound of the gallbladder. The patient requires a HIDA scan with gallbladder ejection fraction. 3. Suspicion of cholecystitis for which surgery was consulted. 4. Mixed hyperlipidemia. 5. Benign essential hypertension. 6. Polysubstance abuse. 7. Major depression, recurrent, moderate. 8. Mixed hyperlipidemia. HOSPITAL COURSE: The patient presented to [facility] with recurrent intractable nausea and vomiting starting on that morning. The patient is feeling sick and weak and was dehydrated and hypovolemic. The patient is unable to keep any food down after eating. The patient's vomiting finally resolved, but he still had significant nausea. The patient's CT of the abdomen and pelvis was performed and later on an ultrasound which were normal. I wanted to perform a HIDA scan with gallbladder ejection fraction to look for biliary dyskinesia, but the patient left against medical advice. Surgery was consulted to evaluate the patient also. ASSESSMENT AND PLAN: 1. Benign essential hypertension. Blood pressure was monitored and treated. 2. History of polysubstance abuse. The patient remained on Suboxone. 3. Major depression, recurrent, moderate, treated and asymptomatic with Cymbalta. 4. Mixed hyperlipidemia to be followed and treated as an outpatient. MANAGEMENT: The patient's management at the time of him leaving the hospital against medical advice were hydration with normal saline, Zofran, Phenergan, Cymbalta, Neurontin, Zocor, Zyprexa, Suboxone, Ambien, and Reglan. [place], [place] DISCHARGE SUMMARY NAME: LUIS VERMA UNIT #: [id number] ROOM: 405 DOCTOR: SHRUTHI ROMANO MD BIRTHDATE: [birth year] SHRUTHI ROMANO MD CM:DISCHARG [id number] SHRUTHI ROMANO MD 11/15/18 1047 interface
[~2018-11-08 15:03] MED LIST changes: -AMBIEN5 MG PO; -BUSPAR5 MG PO; -GABAPENTIN800 MG PO; -REXULTI3 MG PO; -VENLAFAXINE75 M1 PO
[2018-11-08 15:05] VITALS: BP 149/83
[2018-11-08 17:06] LABS: BASO % 0.3 % (0.0-1.0); EOS % 0.1 % (1.0-4.0); HEMATOCRIT 44.8 % (42.0-52.0); HEMOGLOBIN 14.8 g/dl (14.0-18.0); LYMPH # 2.8 10*3/uL (1.3-4.4); MEAN CORPUSCULAR HGB 30.4 pg (27.0-31.0); MEAN PLATELET VOLUME 9.6 fl (9.6-12.3); MONO # 0.6 10*3/uL (0.1-1.0); MONO % 4.1 % (3.0-9.0); NEUT # 10.6 10*3/uL (2.3-7.9); PLATELET COUNT AUTOMATED 248 10*3/uL (130-400); RED BLOOD COUNT 4.87 10*6/uL (4.50-5.90); RED CELL DISTRI WIDTH 12.6 % (0-14.5); WHITE BLOOD COUNT 14.1 10*3/uL (4.8-10.8)
[2018-11-08 17:16] LABS: ACT PARTIAL THROMBO TIME 21.2 SECONDS (20.8-31.5)
[2018-11-08 17:22] LABS: ALKALINE PHOSPHATASE 106 U/L (45-117); BUN 10 mg/dl (7-24); CHLORIDE 104 mmol/L (98-107); CREATININE 1.12 mg/dL (0.70-1.30); LIPASE 96 U/L (73-393); POTASSIUM 4.1 mmol/L (3.5-5.1); SGOT/AST 14 IU/L (3-35); SGPT/ALT 26 U/L (12-78); SODIUM 139 mmol/L (136-145); TOTAL PROTEIN 7.6 gm/dL (6.4-8.2)
[2018-11-08 17:25] LABS: TROPONIN I < 0.015 ng/ml (<0.045)
--- NOTE | 2018-11-08 18:30 | NUR ---
[place] 2.3 DR SIDDIQUI NOTIFIED
[2018-11-08 18:45] VITALS: BP 148/70
--- NOTE | 2018-11-08 18:45 | NUR ---
A 63, admitted to 4E, under the services of Dr. JUAN ANTONIO RICCI,SHRUTHI Lopez with a diagnosis of NAUSEA AND VOMITING. Chief complaint is N/V. Patient arrived via bed from ER. Monitor applied. Initial assessment completed. Vital signs taken and recorded. DR. JUAN ANTONIO RICCI,SHRUTHI Lopez notified of admission to the unit. Orders received. See assessment for past medical history, medications and allergies. Patient and/or family oriented to unit. [facility] visitation policy reviewed. Clothing/patient valuable form completed. SOWMYA FITZGERALD
--- NOTE | 2018-11-08 19:01 | NUR ---
ADMISSION COMPLETED. MARICRUZ MAST ASSUMED CARE.
[2018-11-08 20:00] VITALS: BP 158/91
--- NOTE | 2018-11-08 23:09 | NUR ---
NOTIFIED DR MAYBERRY OF PATIENT REQUESTING SLEEPING PILL. AND STATING HE STILL HAS NAUSEA DESPITE EARLIER ZOFRAN. NEW ORDERS RECEIVED.
[2018-11-09] VITALS: BP 174/84
--- NOTE | 2018-11-09 00:50 | NUR ---
HEART MONITOR REMOVED AND RETURNED TO FLOOR
--- NOTE | 2018-11-09 05:37 | NUR ---
PATIENT MEDICATED WITH PRN ZOFRAN ORDERED FOR C/O NAUSEA.
[2018-11-09 07:45] LABS: HEMATOCRIT 44.1 % (42.0-52.0); HEMOGLOBIN 14.7 g/dl (14.0-18.0); MEAN CELL VOLUME 93.4 fl (80.0-94.0); MEAN CORPUSCULAR HGB 31.1 pg (27.0-31.0); MEAN CORPUSCULAR HGB CONC 33.3 g/dl (33.0-37.0); MEAN PLATELET VOLUME 9.7 fl (9.6-12.3); PLATELET COUNT AUTOMATED 229 10*3/uL (130-400); RED BLOOD COUNT 4.72 10*6/uL (4.50-5.90); RED CELL DISTRI WIDTH 12.9 % (0-14.5); WHITE BLOOD COUNT 18.7 10*3/uL (4.8-10.8)
[2018-11-09 08:00] VITALS: BP 135/61
[2018-11-09 08:06] LABS: BUN 14 mg/dl (7-24); CHLORIDE 105 mmol/L (98-107); POTASSIUM 3.7 mmol/L (3.5-5.1); SODIUM 140 mmol/L (136-145)
[2018-11-09 08:35] LABS: PLATELET SUFFICIENCY NORMAL (NORMAL); TOTAL CELLS COUNTED 100 #CELLS
[2018-11-09] MEDS ORDERED: AMBIEN5 MG PO (09:23)
[2018-11-09] MEDS ORDERED: BUSPAR5 MG PO (09:24)
[2018-11-09] MEDS ORDERED: EFFEXOR XR150 M1 PO (09:54)
[2018-11-09] MEDS ORDERED: VENLAFAXINE75 M1 PO (09:55)
--- NOTE | 2018-11-09 11:37 | NUR ---
ZOFRAN GIVEN FOR C/O NAUSEA. WILL MONITOR.
[2018-11-09 12:00] VITALS: BP 153/77
--- NOTE | 2018-11-09 12:00 | NUR ---
Building Dismantler in to talk to patient. Patient states lives at home with his girlfriend. There are "few" steps in the home. Physician: Dr. Mark Godfrey Pharmacy: [facility] Home health services: none Patient's level of ADLs: INDEPENDENT Patient has working utilities: yes DME: none Follow-up physician's appointment after d/c: he prefers to make his own follow up appt after discharge Does patient want to access PORTAL?: no Discharge plan discussed with patient. He lives at home with his girlfriend. He is independent in his ADLs and ambulation. Discussed home health care services and he denies any home needs at this time. When medically stable he will be discharged to home. CHILO WASHINGTON
--- NOTE | 2018-11-09 12:40 | NUR ---
GIOVANNA HELPING, NOT FULLY EFFECTIVE. WILL MONITOR.
--- NOTE | 2018-11-09 13:30 | NUR ---
LEFT PK WITH DR. ROMANO IN RE:CONSULT
--- NOTE | 2018-11-09 13:43 | NUR ---
VISTARIL GIVEN FOR C/O ANXIETY. WILL MONITOR.
[2018-11-09 16:00] VITALS: BP 138/57
--- NOTE | 2018-11-09 16:07 | NUR ---
MEDICATED WITH PRN PO VISTARIL FOR C/O ANXIETY.
--- NOTE | 2018-11-09 16:28 | NUR ---
LEFT MESSAGE RE: CONSULT ON DR. ROMANO'S CELL PHONE.
--- NOTE | 2018-11-09 17:52 | NUR ---
PRN VISTARIL WAS SOMEWHAT EFFECTIVE; MEDICATED AT THIS TIME WITH PRN IV ZOFRAN FOR NAUSEA; PATIENT IS TRYING TO EAT SUPPER.
--- NOTE | 2018-11-09 18:01 | NUR ---
DR. VOGEL NOTIFIED OF CONSULT.
[2018-11-09 20:00] VITALS: BP 164/81
--- NOTE | 2018-11-09 20:30 | NUR ---
24 HR chart check completed.
--- NOTE | 2018-11-09 21:00 | NUR ---
RESTING IN BED WITH. RESPIRATIONS EASY. LUNGS DIMINISHED WITH RIGHT SIDED WHEEZES. PULSE OX 98% RA. SMOKERS COUGH NOTED. SCRATCHES NOTED TO ARMS, PATIENT STATES D/T DOG. IV FLUIDS INFUSING PER ORDER. CALL LIGHT WITHIN REACH. NO VOICED COMPLAINTS
--- NOTE | 2018-11-09 21:42 | NUR ---
MEDICATED WTH VISTARIL TO ASSIST WITH SLEEP. CALL LIGHT WITHIN REACH. WILL MONITOR FOR EFFECTIVENESS
--- NOTE | 2018-11-09 22:00 | NUR ---
REFUSED 2200 SUBOXONE AND NEURONTIN STATING IT UPSETS HIS STOMACH. EXPLAINED TO PATIENT REPORTED NAUSEA COULD ALSO BE COMTRIBUTED TO ABRUPTLY STOPPING SUBOXONE.
--- NOTE | 2018-11-09 23:54 | NUR ---
REQUESTED AND RECEIVED ZOFRAN PER PRN ORDER FOR COMPLAINTS OF NASEUA.
[2018-11-10] VITALS: BP 154/59
--- NOTE | 2018-11-10 02:00 | NUR ---
MEDS EFFECTIVE. SLEEPING. RESPIRATIONS EASY. IV FLUIDS MAINTAINED. CALL LIGHT WITHIN REACH
[2018-11-10 03:20] LABS: BILIRUBIN NEGATIVE (NEGATIVE); BLOOD NEGATIVE (NEGATIVE); CLARITY CLEAR (CLEAR); COLOR YELLOW (YELLOW); GLUCOSE NEGATIVE (NEGATIVE); KETONE 2+ (NEGATIVE); LEUKO ESTERASE NEGATIVE (NEGATIVE); NITRITE NEGATIVE (NEGATIVE); PH 6.5 (5.0-9.0); SPECIFIC GRAVITY 1.015 (1.005-1.030); UROBILINOGEN 0.2 E.U./dl (0.2-1.0)
[2018-11-10 03:25] LABS: WBC 0-2 wbc/hpf (0-5)
[2018-11-10] MEDS ORDERED: REXULTI3 MG PO (04:20)
[2018-11-10] MEDS ORDERED: GABAPENTIN800 MG PO (04:22)
--- NOTE | 2018-11-10 06:15 | NUR ---
PATIENT SLEEPING. AWAKENS EASILY. REFUSES TO ALLOW LAB TO DRAW BLOOD WORK STATING "MY ARM IS SORE." EXPLAINED TO PATIETN LABS NEED TO BE REASSESSED BUT PATIENT CONTINUES TO REFUSE. PROVIDED WITH BARIUM FOR CAT SCAN AND EXPLAINED IMPORTANCE OF DRINKING TO WHICH PATIENT REPLIES "IT AIN'T GONNA HAPPEN. I HAVEN'T EATEN IN 2 DAYS." AGAIN ATTEMPTED TO EXPLAIN TO PATIENT IMPORTANCE OF DRINKING PREP. PATIENT CONTINUES TO REFUSE
--- NOTE | 2018-11-10 07:30 | NUR ---
PATIENT DRANK 0% OF PREP.
[2018-11-10 08:00] VITALS: BP 172/81
--- NOTE | 2018-11-10 09:00 | NUR ---
Manager Cardiac in to see patient. No new needs or request at this time. He denies any home needs at this time. When medically stable he will be discharged to home.
[2018-11-10 12:00] VITALS: BP 154/65
[2018-11-10 16:00] VITALS: BP 138/70
[2018-11-10 18:14] LABS: HEMATOCRIT 40.6 % (42.0-52.0); HEMOGLOBIN 13.9 g/dl (14.0-18.0); MEAN CELL VOLUME 92.3 fl (80.0-94.0); MEAN CORPUSCULAR HGB 31.6 pg (27.0-31.0); MEAN CORPUSCULAR HGB CONC 34.2 g/dl (33.0-37.0); MEAN PLATELET VOLUME 9.9 fl (9.6-12.3); PLATELET COUNT AUTOMATED 178 10*3/uL (130-400); WHITE BLOOD COUNT 15.2 10*3/uL (4.8-10.8)
[2018-11-10 19:24] LABS: ATYPICAL LYMPHS 10 % (0-0); PLATELET SUFFICIENCY NORMAL (NORMAL); TOTAL CELLS COUNTED 100 #CELLS
[2018-11-10 20:00] VITALS: BP 117/65
--- NOTE | 2018-11-10 20:25 | NUR ---
AAOX3. IV FLUIDS INFUSING INTO IV IN RIGHT ANTECUBITAL; SITE ASYMPTOMATIC. PT. DENIES PAIN AT THIS TIME. VOICES NO C/O NAUSEA, VOMITING NOR DIARRHEA. CALL LIGHT WITHIN REACH.
--- NOTE | 2018-11-10 21:04 | NUR ---
MEDICATED WITH AMBIEN PER PT'S REQUEST FOR SLEEP.
--- NOTE | 2018-11-11 02:00 | NUR ---
RESTING IN BED WITH EYES CLOSED; KATE APPARENTLY EFFECTIVE. CALL LIGHT WITHIN REACH.
--- NOTE | 2018-11-11 06:00 | NUR ---
TOOK PO MEDICATION WITHOUT DIFFICULTY. CALL LIGHT WITHIN REACH.
[2018-11-11 06:29] LABS: HEMATOCRIT 38.5 % (42.0-52.0); HEMOGLOBIN 12.6 g/dl (14.0-18.0); MEAN CELL VOLUME 94.6 fl (80.0-94.0); MEAN CORPUSCULAR HGB CONC 32.7 g/dl (33.0-37.0); PLATELET COUNT AUTOMATED 154 10*3/uL (130-400); RED BLOOD COUNT 4.07 10*6/uL (4.50-5.90); WHITE BLOOD COUNT 11.5 10*3/uL (4.8-10.8)
[2018-11-11 06:42] LABS: BUN 14 mg/dl (7-24); CHLORIDE 109 mmol/L (98-107); CREATININE 0.87 mg/dL (0.70-1.30); POTASSIUM 3.5 mmol/L (3.5-5.1); SODIUM 143 mmol/L (136-145)
[2018-11-11 08:00] VITALS: BP 117/54
[2018-11-11 08:10] LABS: ATYPICAL LYMPHS 6 % (0-0); BASOPHILS 1 % (0-1); TOTAL CELLS COUNTED 100 #CELLS
[2018-11-11 08:18] LABS: PLATELET SUFFICIENCY NORMAL (NORMAL)
--- NOTE | 2018-11-11 08:24 | NUR ---
spoke with dr. glasgow in re: cta. pt is refusing, also refusing iv fliuds.
--- NOTE | 2018-11-11 12:08 | NUR ---
PT SHIRLEY AMA. OIL EXPLORATION ENGINEER AND DR. ROMANO NOTIFIED.
== END 2018-11-11 12:08 | disposition left against medical advice (07) | DRG 445 ==
LOC: ED 15:03 → 4E 17:48 → EDHOLD 17:48 → 4E 18:27
PROVIDERS: Emergency Medicine; Internal Medicine Gastroenterology; ADMIT Internal Medicine
DX: K81.9 Cholecystitis, unspecified (principal); F33.9 Major depressive disorder, recurrent, unspecified; Z80.1 Family history of malignant neoplasm of trachea, bronchus and lung; E86.0 Dehydration; F19.10 Other psychoactive substance abuse, uncomplicated; G89.29 Other chronic pain; M79.7 Fibromyalgia; Z96.662 Presence of left artificial ankle joint; E78.2 Mixed hyperlipidemia; K57.90 Diverticulosis of intestine, part unspecified, without perforation or abscess without bleeding; Z72.89 Other problems related to lifestyle

== ENCOUNTER → 2019-07-30 | Outpatient (CLI) | payer OTHER ==
[~2019-07-30] MED LIST changes: +AMBIEN5 MG PO; +BUSPAR5 MG PO; +GABAPENTIN800 MG PO; +REXULTI3 MG PO; +VENLAFAXINE75 M1 PO
[2019-07-30 11:51] LABS: HEMATOCRIT 46.7 % (42.0-52.0); HEMOGLOBIN 15.5 g/dl (14.0-18.0); MEAN CELL VOLUME 92.3 fl (80.0-94.0); MEAN CORPUSCULAR HGB 30.6 pg (27.0-31.0); MEAN CORPUSCULAR HGB CONC 33.2 g/dl (33.0-37.0); MEAN PLATELET VOLUME 10.5 fl (9.6-12.3); RED BLOOD COUNT 5.06 10*6/uL (4.50-5.90); RED CELL DISTRI WIDTH 12.6 % (0-14.5); WHITE BLOOD COUNT 10.1 10*3/uL (4.8-10.8)
[2019-07-30 12:15] LABS: ALBUMIN 3.7 gm/dl (3.1-4.5); ALKALINE PHOSPHATASE 83 U/L (45-117); BUN 11 mg/dl (7-24); CHLORIDE 103 mmol/L (98-107); CHOLESTEROL 198 mg/dL (<200); CPK 30 U/L (39-308); CREATININE 0.97 mg/dL (0.70-1.30); HDL CHOLESTEROL 53 mg/dl (40-60); LDL CHOLESTEROL 115 mg/dL (9-159); POTASSIUM 3.9 mmol/L (3.5-5.1); SGOT/AST 9 IU/L (3-35); SGPT/ALT 21 U/L (12-78); SODIUM 138 mmol/L (136-145); TOTAL PROTEIN 7.2 gm/dL (6.4-8.2); TRIGLYCERIDES 152 mg/dl (<150); VLDL CHOLESTEROL 30 mg/dL (6-40)
[2019-07-31 09:05] LABS: PROSTATE SPECIFIC AG FREE 0.83 ng/mL; PROSTATE SPECIFIC AG, SERUM 10.2 ng/mL (0.0-4.0)
== END | disposition home or self-care (01) ==
LOC: LAB 11:05
PROVIDERS: Family Medicine
DX: I10 Essential (primary) hypertension (principal); E78.00 Pure hypercholesterolemia, unspecified; R97.20 Elevated prostate specific antigen [PSA]

== ENCOUNTER → 2019-10-30 | Outpatient (CLI) | payer OTHER ==
[2019-10-30 14:21] LABS: BASO # 0.1 10*3/uL (0.0-0.1); BASO % 0.7 % (0.0-1.0); EOS # 0.1 10*3/uL (0.0-0.4); EOS % 1.1 % (1.0-4.0); HEMATOCRIT 44.5 % (42.0-52.0); HEMOGLOBIN 14.7 g/dl (14.0-18.0); LYMPH # 4.6 10*3/uL (1.3-4.4); MEAN CELL VOLUME 95.1 fl (80.0-94.0); MEAN CORPUSCULAR HGB 31.4 pg (27.0-31.0); MEAN PLATELET VOLUME 10.7 fl (9.6-12.3); MONO # 0.6 10*3/uL (0.1-1.0); MONO % 6.3 % (3.0-9.0); NEUT # 3.6 10*3/uL (2.3-7.9); NEUT % 39.7 % (47.0-73.0); PLATELET COUNT AUTOMATED 185 10*3/uL (130-400); RED BLOOD COUNT 4.68 10*6/uL (4.50-5.90); RED CELL DISTRI WIDTH 12.6 % (0-14.5); WHITE BLOOD COUNT 8.9 10*3/uL (4.8-10.8)
[2019-10-30 14:34] LABS: ALBUMIN 3.9 gm/dl (3.1-4.5); ALKALINE PHOSPHATASE 76 U/L (45-117); BUN 12 mg/dl (7-24); CHLORIDE 102 mmol/L (98-107); CHOLESTEROL 189 mg/dL (<200); CREATININE 1.05 mg/dL (0.70-1.30); HDL CHOLESTEROL 53 mg/dl (40-60); LDL CHOLESTEROL 110 mg/dL (9-159); POTASSIUM 4.6 mmol/L (3.5-5.1); SGOT/AST 10 IU/L (3-35); SGPT/ALT 23 U/L (12-78); SODIUM 136 mmol/L (136-145); TRIGLYCERIDES 130 mg/dl (<150); VLDL CHOLESTEROL 26 mg/dL (6-40)
== END | disposition home or self-care (01) ==
LOC: LAB 13:54
PROVIDERS: Nurse Practitioner Family
DX: I10 Essential (primary) hypertension (principal); E78.00 Pure hypercholesterolemia, unspecified; E55.9 Vitamin D deficiency, unspecified

== ENCOUNTER → 2019-11-20 | Outpatient (CLI) | payer OTHER | END | disposition home or self-care (01) | LOC: RAD 11:55 | DX: M54.9 Dorsalgia, unspecified (principal) ==

== ENCOUNTER 2020-05-04 17:29 | Emergency (ER) | payer OTHER ==
[~2020-05-04] VITALS: Ht 185.4 cm; Wt 108.9 kg
[2020-05-04 18:38] LABS: HEMATOCRIT 46.8 % (42.0-52.0); MEAN CELL VOLUME 85.9 fl (80.0-94.0); MEAN CORPUSCULAR HGB 29.7 pg (27.0-31.0); MEAN CORPUSCULAR HGB CONC 34.6 g/dl (33.0-37.0); PLATELET COUNT AUTOMATED 248 10*3/uL (130-400); RED BLOOD COUNT 5.45 10*6/uL (4.50-5.90); RED CELL DISTRI WIDTH 11.9 % (0-14.5); WHITE BLOOD COUNT 14.4 10*3/uL (4.8-10.8)
[2020-05-04 18:52] LABS: ALBUMIN 4.3 gm/dl (3.1-4.5); ALKALINE PHOSPHATASE 76 U/L (45-117); BUN 11 mg/dl (7-24); CHLORIDE 100 mmol/L (98-107); POTASSIUM 2.9 mmol/L (3.5-5.1); SGOT/AST 12 IU/L (3-35); SGPT/ALT 24 U/L (12-78); SODIUM 136 mmol/L (136-145); TOTAL PROTEIN 7.8 gm/dL (6.4-8.2)
[2020-05-04 18:53] LABS: ETHYL ALCOHOL < 3.0 mg/dl (<3)
[2020-05-04 18:54] LABS: ATYPICAL LYMPHS 1 % (0-0); TOTAL CELLS COUNTED 100 #CELLS
[2020-05-04 18:55] LABS: PLATELET SUFFICIENCY NORMAL (NORMAL)
[2020-05-04] MEDS ORDERED: PEPCID40 MG PO (23:55)
[2020-05-04] MEDS ORDERED: ZOFRAN4 MG PO (23:55)
[2020-05-05] MEDS ORDERED: KLOR-CON M1010 ME1 PO (00:08)
== END 2020-05-05 00:20 | disposition home or self-care (01) ==
LOC: ED 17:29
PROVIDERS: Emergency Medicine
DX: K29.20 Alcoholic gastritis without bleeding (principal); R11.2 Nausea with vomiting, unspecified; I10 Essential (primary) hypertension; F32.9 Major depressive disorder, single episode, unspecified; M10.9 Gout, unspecified; E78.00 Pure hypercholesterolemia, unspecified; F17.200 Nicotine dependence, unspecified, uncomplicated; Z79.899 Other long term (current) drug therapy

== ENCOUNTER → 2020-06-18 | Outpatient (CLI) | payer OTHER ==
[~2020-06-18] MED LIST changes: +KLOR-CON M1010 ME1 PO; +PEPCID40 MG PO
[2020-06-18 11:35] LABS: HEMATOCRIT 42.3 % (42.0-52.0); MEAN CELL VOLUME 92.2 fl (80.0-94.0); MEAN CORPUSCULAR HGB 29.8 pg (27.0-31.0); MEAN CORPUSCULAR HGB CONC 32.4 g/dl (33.0-37.0); MEAN PLATELET VOLUME 10.6 fl (9.6-12.3); RED BLOOD COUNT 4.59 10*6/uL (4.50-5.90); RED CELL DISTRI WIDTH 12.9 % (0-14.5); WHITE BLOOD COUNT 11.4 10*3/uL (4.8-10.8)
[2020-06-18 12:02] LABS: ALBUMIN 3.5 gm/dl (3.1-4.5); ALKALINE PHOSPHATASE 80 U/L (45-117); BUN 10 mg/dl (7-24); CHLORIDE 101 mmol/L (98-107); CHOLESTEROL 183 mg/dL (<200); CREATININE 0.79 mg/dL (0.70-1.30); HDL CHOLESTEROL 58 mg/dl (40-60); LDL CHOLESTEROL 97 mg/dL (9-159); SGOT/AST 23 IU/L (3-35); SGPT/ALT 21 U/L (12-78); SODIUM 138 mmol/L (136-145); TOTAL PROTEIN 7.1 gm/dL (6.4-8.2); TRIGLYCERIDES 142 mg/dl (<150); VLDL CHOLESTEROL 28 mg/dL (6-40)
== END | disposition home or self-care (01) ==
LOC: LAB 10:32
PROVIDERS: ATTEND Family Medicine
DX: E78.00 Pure hypercholesterolemia, unspecified (principal); I10 Essential (primary) hypertension; E55.9 Vitamin D deficiency, unspecified; F41.1 Generalized anxiety disorder; E74.00 Glycogen storage disease, unspecified

== ENCOUNTER → 2020-11-05 | Outpatient (CLI) | payer OTHER ==
[~2020-11-05] MED LIST changes: +COLACE100 MG PO; +DESVENLAFAXINE100 M3 PO; +HYDROCODONE-AC1 EACH PO; +SEROQUEL100 MG PO
[2020-11-05 13:49] LABS: HEMATOCRIT 45.9 % (42.0-52.0); MEAN CELL VOLUME 91.3 fl (80.0-94.0); MEAN CORPUSCULAR HGB 29.4 pg (27.0-31.0); MEAN CORPUSCULAR HGB CONC 32.2 g/dl (33.0-37.0); MEAN PLATELET VOLUME 10.2 fl (9.6-12.3); RED BLOOD COUNT 5.03 10*6/uL (4.50-5.90); RED CELL DISTRI WIDTH 12.3 % (0-14.5); WHITE BLOOD COUNT 9.7 10*3/uL (4.8-10.8)
[2020-11-05 14:05] LABS: ALBUMIN 3.9 gm/dl (3.1-4.5); ALKALINE PHOSPHATASE 76 U/L (45-117); BUN 8 mg/dl (7-24); CHLORIDE 106 mmol/L (98-107); CHOLESTEROL 202 mg/dL (<200); CPK 43 U/L (39-308); CREATININE 0.92 mg/dL (0.70-1.30); HDL CHOLESTEROL 57 mg/dl (40-60); LDL CHOLESTEROL 104 mg/dL (9-159); POTASSIUM 4.2 mmol/L (3.5-5.1); SGOT/AST 16 IU/L (3-35); SGPT/ALT 28 U/L (12-78); SODIUM 142 mmol/L (136-145); TOTAL PROTEIN 7.2 gm/dL (6.4-8.2); TRIGLYCERIDES 205 mg/dl (<150); VLDL CHOLESTEROL 41 mg/dL (6-40)
== END | disposition home or self-care (01) ==
LOC: LAB 13:07
PROVIDERS: ATTEND Family Medicine
DX: C61 Malignant neoplasm of prostate (principal); I10 Essential (primary) hypertension; E78.00 Pure hypercholesterolemia, unspecified; E55.9 Vitamin D deficiency, unspecified; Z79.899 Other long term (current) drug therapy

== ENCOUNTER 2021-01-19 12:17 | Inpatient (IN) | payer OTHER, MEDICAID ==
[~2021-01-19] VITALS: Ht 185.4 cm; Wt 108.9 kg
[~2021-01-19 12:17] MED LIST changes: -COLACE100 MG PO; -DESVENLAFAXINE100 M3 PO; -HYDROCODONE-AC1 EACH PO; -SEROQUEL100 MG PO
[2021-01-19 12:25] VITALS: BP 172/76
[2021-01-19 13:37] LABS: BASO % 0.3 % (0.0-1.0); EOS % 0.3 % (1.0-4.0); HEMATOCRIT 45.7 % (42.0-52.0); LYMPH # 2.7 10*3/uL (1.3-4.4); LYMPH % 23.6 % (27.0-41.0); MEAN CELL VOLUME 88.1 fl (80.0-94.0); MEAN CORPUSCULAR HGB 30.1 pg (27.0-31.0); MEAN CORPUSCULAR HGB CONC 34.1 g/dl (33.0-37.0); MEAN PLATELET VOLUME 9.3 fl (9.6-12.3); MONO # 0.9 10*3/uL (0.1-1.0); NEUT # 7.7 10*3/uL (2.3-7.9); NEUT % 67.5 % (47.0-73.0); PLATELET COUNT AUTOMATED 234 10*3/uL (130-400); RED BLOOD COUNT 5.19 10*6/uL (4.50-5.90); RED CELL DISTRI WIDTH 12.6 % (0-14.5); WHITE BLOOD COUNT 11.5 10*3/uL (4.8-10.8)
[2021-01-19 13:51] LABS: ALBUMIN 4.1 gm/dl (3.1-4.5); ALKALINE PHOSPHATASE 88 U/L (45-117); BUN 17 mg/dl (7-24); CHLORIDE 103 mmol/L (98-107); LIPASE 89 U/L (73-393); POTASSIUM 3.2 mmol/L (3.5-5.1); SGOT/AST 24 IU/L (3-35); SGPT/ALT 31 U/L (12-78); SODIUM 137 mmol/L (136-145); TOTAL PROTEIN 7.7 gm/dL (6.4-8.2)
[2021-01-19 13:52] LABS: TROPONIN I < 0.015 ng/ml (<0.045)
[2021-01-19 13:56] LABS: ACT PARTIAL THROMBO TIME 25.4 SECONDS (20.0-32.1)
[2021-01-19 17:50] VITALS: BP 142/88; BP 144/88
[2021-01-19 18:08] VITALS: BP 112/89
[2021-01-19] MEDS ORDERED: SEROQUEL100 MG PO (19:36)
[2021-01-20] VITALS: BP 104/50
[2021-01-20 06:21] LABS: HEMATOCRIT 40.1 % (42.0-52.0); MEAN CELL VOLUME 88.3 fl (80.0-94.0); MEAN CORPUSCULAR HGB 30.2 pg (27.0-31.0); MEAN CORPUSCULAR HGB CONC 34.2 g/dl (33.0-37.0); MEAN PLATELET VOLUME 9.6 fl (9.6-12.3); PLATELET COUNT AUTOMATED 200 10*3/uL (130-400); RED BLOOD COUNT 4.54 10*6/uL (4.50-5.90); RED CELL DISTRI WIDTH 12.6 % (0-14.5); WHITE BLOOD COUNT 13.2 10*3/uL (4.8-10.8)
[2021-01-20 06:55] LABS: ALBUMIN 3.4 gm/dl (3.1-4.5); ALKALINE PHOSPHATASE 73 U/L (45-117); BUN 21 mg/dl (7-24); CHLORIDE 109 mmol/L (98-107); CREATININE 1.05 mg/dL (0.70-1.30); POTASSIUM 2.8 mmol/L (3.5-5.1); SGOT/AST 15 IU/L (3-35); SGPT/ALT 24 U/L (12-78); SODIUM 141 mmol/L (136-145); TOTAL PROTEIN 6.5 gm/dL (6.4-8.2)
[2021-01-20 07:23] LABS: PLATELET SUFFICIENCY NORMAL (NORMAL); TOTAL CELLS COUNTED 100 #CELLS
[2021-01-20 07:51] VITALS: BP 110/58
[2021-01-20] MEDS ORDERED: DESVENLAFAXINE100 M3 PO (11:07)
[2021-01-20] MEDS ORDERED: HYDROCODONE-AC1 EACH PO (11:09)
[2021-01-20 16:00] VITALS: BP 170/83
[2021-01-20 20:00] VITALS: BP 118/64
[2021-01-21] VITALS (10 sets, daily range): BP systolic 121–172; BP diastolic 46–109
[2021-01-22] VITALS: BP 140/76
[2021-01-22 08:00] VITALS: BP 136/94
[2021-01-22] MEDS ORDERED: ZOFRAN4 MG PO (09:16)
[2021-01-22] MEDS ORDERED: COLACE100 MG PO (09:16)
== END 2021-01-22 11:27 | disposition home or self-care (01) | DRG 418 ==
LOC: ED 12:17 → EDHOLD 16:32 → 5E 16:32
PROVIDERS: Emergency Medicine; ADMIT Internal Medicine; ATTEND Internal Medicine
PROC: 0FT44ZZ Resection of Gallbladder, Percutaneous Endoscopic Approach (ICD-10-PCS; principal; 2021-01-21)
PROC: 3E0T3BZ Introduction of Anesthetic Agent into Peripheral Nerves and Plexi, Percutaneous Approach (ICD-10-PCS; 2021-01-21)
DX: K82.8 Other specified diseases of gallbladder (principal); F33.1 Major depressive disorder, recurrent, moderate; K81.2 Acute cholecystitis with chronic cholecystitis; K21.00 Gastro-esophageal reflux disease with esophagitis, without bleeding; E87.6 Hypokalemia; K21.9 Gastro-esophageal reflux disease without esophagitis; Z96.662 Presence of left artificial ankle joint; F41.1 Generalized anxiety disorder; E78.2 Mixed hyperlipidemia; I10 Essential (primary) hypertension; F51.01 Primary insomnia; Z80.1 Family history of malignant neoplasm of trachea, bronchus and lung

== ENCOUNTER → 2021-02-16 | Outpatient (CLI) | payer OTHER, MEDICAID ==
[~2021-02-16] MED LIST changes: +COLACE100 MG PO; +DESVENLAFAXINE100 M3 PO; +HYDROCODONE-AC1 EACH PO; +SEROQUEL100 MG PO
[2021-02-16 13:56] LABS: ALBUMIN 3.6 gm/dl (3.1-4.5); ALKALINE PHOSPHATASE 86 U/L (45-117); BUN 12 mg/dl (7-24); CHLORIDE 106 mmol/L (98-107); CHOLESTEROL 195 mg/dL (<200); CPK 53 U/L (39-308); CREATININE 0.83 mg/dL (0.70-1.30); LDL CHOLESTEROL 116 mg/dL (9-159); POTASSIUM 4.2 mmol/L (3.5-5.1); SGOT/AST 11 IU/L (3-35); SGPT/ALT 24 U/L (12-78); SODIUM 142 mmol/L (136-145); TOTAL PROTEIN 6.9 gm/dL (6.4-8.2); TRIGLYCERIDES 133 mg/dl (<150)
== END | disposition home or self-care (01) ==
LOC: LAB 12:54
PROVIDERS: ATTEND Family Medicine
DX: I10 Essential (primary) hypertension (principal); E78.00 Pure hypercholesterolemia, unspecified

== ENCOUNTER → 2021-04-17 | Outpatient (CLI) | payer OTHER ==
[2021-04-17 13:00] LABS: HEMATOCRIT 41.9 % (42.0-52.0); MEAN CELL VOLUME 92.5 fl (80.0-94.0); MEAN CORPUSCULAR HGB 30.2 pg (27.0-31.0); MEAN CORPUSCULAR HGB CONC 32.7 g/dl (33.0-37.0); MEAN PLATELET VOLUME 9.8 fl (9.6-12.3); RED BLOOD COUNT 4.53 10*6/uL (4.50-5.90); WHITE BLOOD COUNT 10.7 10*3/uL (4.8-10.8)
[2021-04-17 13:19] LABS: ALBUMIN 3.9 gm/dl (3.1-4.5); BUN 20 mg/dl (7-24); CHLORIDE 105 mmol/L (98-107); CHOLESTEROL 193 mg/dL (<200); CPK 668 U/L (39-308); CREATININE 0.86 mg/dL (0.70-1.30); POTASSIUM 3.7 mmol/L (3.5-5.1); SGOT/AST 26 IU/L (3-35); SGPT/ALT 21 U/L (12-78); SODIUM 139 mmol/L (136-145); TOTAL PROTEIN 6.9 gm/dL (6.4-8.2); TRIGLYCERIDES 109 mg/dl (<150)
[2021-04-17 13:20] LABS: ALKALINE PHOSPHATASE 76 U/L (45-117); LDL CHOLESTEROL 110 mg/dL (9-159)
== END | disposition home or self-care (01) ==
LOC: LAB 12:43
PROVIDERS: ATTEND Family Medicine
DX: I10 Essential (primary) hypertension (principal); E78.00 Pure hypercholesterolemia, unspecified

== ENCOUNTER → 2021-05-19 | Outpatient (CLI) | payer OTHER | END | disposition home or self-care (01) | LOC: LAB 12:44 | PROVIDERS: ATTEND Family Medicine | DX: T50.995A Adverse effect of other drugs, medicaments and biological substances, initial encounter (principal); R74.8 Abnormal levels of other serum enzymes ==

== ENCOUNTER → 2021-11-12 | Outpatient (CLI) | payer OTHER ==
[2021-11-12 14:40] LABS: HEMATOCRIT 44.6 % (42.0-52.0); MEAN CELL VOLUME 91.2 fl (80.0-94.0); MEAN CORPUSCULAR HGB 30.5 pg (27.0-31.0); MEAN CORPUSCULAR HGB CONC 33.4 g/dl (33.0-37.0); MEAN PLATELET VOLUME 9.8 fl (9.6-12.3); RED BLOOD COUNT 4.89 10*6/uL (4.50-5.90); RED CELL DISTRI WIDTH 12.4 % (0-14.5); WHITE BLOOD COUNT 8.4 10*3/uL (4.8-10.8)
[2021-11-12 15:02] LABS: ALBUMIN 3.8 gm/dl (3.1-4.5); ALKALINE PHOSPHATASE 92 U/L (45-117); BUN 16 mg/dl (7-24); CHLORIDE 104 mmol/L (98-107); CHOLESTEROL 277 mg/dL (<200); CREATININE 0.91 mg/dL (0.70-1.30); LDL CHOLESTEROL 186 mg/dL (9-159); POTASSIUM 3.9 mmol/L (3.5-5.1); SGOT/AST 16 IU/L (3-35); SGPT/ALT 23 U/L (12-78); SODIUM 140 mmol/L (136-145); TOTAL PROTEIN 7.2 gm/dL (6.4-8.2); TRIGLYCERIDES 197 mg/dl (<150)
[2021-11-12 15:33] LABS: VITAMIN D, 25-HYDROXY 45.5 ng/mL (30-100)
== END | disposition home or self-care (01) ==
LOC: LAB 13:23
PROVIDERS: ATTEND Family Medicine
DX: I10 Essential (primary) hypertension (principal); E78.00 Pure hypercholesterolemia, unspecified; E55.9 Vitamin D deficiency, unspecified

== ENCOUNTER → 2021-12-14 | Outpatient (CLI) | payer OTHER ==
[2021-12-14 13:11] LABS: HEMATOCRIT 44.4 % (42.0-52.0); MEAN CELL VOLUME 89.5 fl (80.0-94.0); MEAN CORPUSCULAR HGB CONC 33.6 g/dl (33.0-37.0); MEAN PLATELET VOLUME 9.4 fl (9.6-12.3); RED BLOOD COUNT 4.96 10*6/uL (4.50-5.90); RED CELL DISTRI WIDTH 12.5 % (0-14.5); WHITE BLOOD COUNT 8.9 10*3/uL (4.8-10.8)
[2021-12-14 13:29] LABS: BUN 11 mg/dl (7-24); CHLORIDE 103 mmol/L (98-107); CHOLESTEROL 210 mg/dL (<200); CREATININE 0.95 mg/dL (0.70-1.30); POTASSIUM 4.3 mmol/L (3.5-5.1); SGOT/AST 10 IU/L (3-35); SGPT/ALT 23 U/L (12-78); SODIUM 139 mmol/L (136-145); TOTAL PROTEIN 7.1 gm/dL (6.4-8.2); TRIGLYCERIDES 198 mg/dl (<150)
[2021-12-14 13:30] LABS: ALKALINE PHOSPHATASE 87 U/L (45-117); CPK 48 U/L (39-308); LDL CHOLESTEROL 121 mg/dL (9-159)
== END | disposition home or self-care (01) ==
LOC: LAB 12:38
PROVIDERS: ATTEND Family Medicine
DX: E78.00 Pure hypercholesterolemia, unspecified (principal)

== ENCOUNTER 2022-05-01 14:01 | Emergency (ER) | payer OTHER ==
[~2022-05-01] VITALS: Wt 111.1 kg
[2022-05-01 15:08] LABS: BASO % 0.3 % (0.0-1.0); EOS % 0.2 % (1.0-4.0); HEMATOCRIT 47.4 % (42.0-52.0); LYMPH # 2.8 10*3/uL (1.3-4.4); LYMPH % 22.9 % (27.0-41.0); MEAN CELL VOLUME 87.6 fl (80.0-94.0); MEAN CORPUSCULAR HGB 29.6 pg (27.0-31.0); MEAN CORPUSCULAR HGB CONC 33.8 g/dl (33.0-37.0); MEAN PLATELET VOLUME 9.7 fl (9.6-12.3); MONO # 0.8 10*3/uL (0.1-1.0); MONO % 6.6 % (3.0-9.0); NEUT # 8.5 10*3/uL (2.3-7.9); NEUT % 69.7 % (47.0-73.0); PLATELET COUNT AUTOMATED 245 10*3/uL (130-400); RED BLOOD COUNT 5.41 10*6/uL (4.50-5.90); RED CELL DISTRI WIDTH 12.2 % (0-14.5); WHITE BLOOD COUNT 12.1 10*3/uL (4.8-10.8)
[2022-05-01 15:32] LABS: ALKALINE PHOSPHATASE 96 U/L (45-117); BUN 21 mg/dl (7-24); CHLORIDE 106 mmol/L (98-107); CREATININE 1.05 mg/dL (0.70-1.30); LIPASE 135 U/L (73-393); POTASSIUM 3.9 mmol/L (3.5-5.1); SGOT/AST 20 IU/L (3-35); SGPT/ALT 33 U/L (12-78); SODIUM 138 mmol/L (136-145); TOTAL PROTEIN 7.5 gm/dL (6.4-8.2)
[2022-05-01 19:06] LABS: BILIRUBIN Negative (Negative); BLOOD Negative (Negative); CLARITY Clear (Clear); COLOR Yellow (Yellow); GLUCOSE Negative (Negative); KETONE 3+ (Negative); LEUKO ESTERASE Negative (Negative); NITRITE Negative (Negative); PH >= 9.0 (4.5-8.0)
[2022-05-01] MEDS ORDERED: ZOFRAN ODT PO (19:17)
[2022-05-01 19:33] LABS: BACTERIA TRACE; RBC 0-2 rbc/hpf (0-2); WBC 0-2 wbc/hpf (0-5)
== END 2022-05-01 20:36 | disposition home or self-care (01) ==
LOC: ED 14:01
PROVIDERS: Emergency Medicine
DX: R11.2 Nausea with vomiting, unspecified (principal); R53.83 Other fatigue; R10.9 Unspecified abdominal pain; E78.5 Hyperlipidemia, unspecified; I10 Essential (primary) hypertension; Z79.899 Other long term (current) drug therapy

== ENCOUNTER → 2022-08-18 | Outpatient (CLI) | payer OTHER ==
[~2022-08-18] MED LIST changes: +ZOFRAN ODT PO
[2022-08-18 12:42] LABS: HEMATOCRIT 42.8 % (42.0-52.0); MEAN CELL VOLUME 95.3 fl (80.0-94.0); MEAN CORPUSCULAR HGB 31.6 pg (27.0-31.0); MEAN CORPUSCULAR HGB CONC 33.2 g/dl (33.0-37.0); MEAN PLATELET VOLUME 8.7 fl (9.6-12.3); RED BLOOD COUNT 4.49 10*6/uL (4.50-5.90); WHITE BLOOD COUNT 7.1 10*3/uL (4.8-10.8)
[2022-08-18 13:00] LABS: ALKALINE PHOSPHATASE 93 U/L (45-117); BUN 9 mg/dl (7-24); CHLORIDE 103 mmol/L (98-107); CHOLESTEROL 176 mg/dL (<200); CPK 40 U/L (39-308); LDL CHOLESTEROL 80 mg/dL (9-159); POTASSIUM 4.7 mmol/L (3.5-5.1); SGOT/AST 22 IU/L (3-35); SGPT/ALT 32 U/L (12-78); SODIUM 137 mmol/L (136-145); TOTAL PROTEIN 7.3 gm/dL (6.4-8.2); TRIGLYCERIDES 182 mg/dl (<150)
[2022-08-18 13:26] LABS: VITAMIN D, 25-HYDROXY 50.8 ng/mL (30-100)
== END | disposition home or self-care (01) ==
LOC: LAB 12:24
PROVIDERS: ATTEND Family Medicine
DX: E78.00 Pure hypercholesterolemia, unspecified (principal); E55.9 Vitamin D deficiency, unspecified; I10 Essential (primary) hypertension; R53.83 Other fatigue; E74.00 Glycogen storage disease, unspecified; Z12.5 Encounter for screening for malignant neoplasm of prostate

== ENCOUNTER → 2022-11-02 | Outpatient (CLI) | payer OTHER ==
[2022-11-02 11:57] LABS: ALKALINE PHOSPHATASE 90 U/L (46-116); BUN 9 mg/dl (9-23); CHLORIDE 102 mmol/L (98-107); CHOLESTEROL 185 mg/dL (<200); LDL CHOLESTEROL 90 mg/dL (9-159); POTASSIUM 4.5 mmol/L (3.4-5.1); SGPT/ALT 18 U/L (10-49); TOTAL PROTEIN 7.1 gm/dL (6.0-8.0); TRIGLYCERIDES 197 mg/dl (<150)
== END | disposition home or self-care (01) ==
LOC: LAB 11:19
PROVIDERS: ATTEND Family Medicine
DX: E78.00 Pure hypercholesterolemia, unspecified (principal); E74.9 Disorder of carbohydrate metabolism, unspecified; Z79.899 Other long term (current) drug therapy

== ENCOUNTER → 2023-01-31 | Outpatient (CLI) | payer OTHER | END | disposition home or self-care (01) | LOC: NM 01:18 | PROVIDERS: ATTEND Radiology Radiation Oncology | DX: K31.84 Gastroparesis (principal); R10.9 Unspecified abdominal pain; C61 Malignant neoplasm of prostate ==

== ENCOUNTER → 2023-02-25 | Outpatient (CLI) | payer OTHER | END | disposition home or self-care (01) | LOC: NM 01:28 | PROVIDERS: ATTEND Radiology Radiation Oncology | DX: C61 Malignant neoplasm of prostate (principal) ==

== ENCOUNTER → 2023-03-15 | Outpatient (CLI) | payer OTHER ==
[2023-03-15 13:00] LABS: MEAN CELL VOLUME 95.4 fl (80.0-94.0); MEAN CORPUSCULAR HGB 31.7 pg (27.0-31.0); MEAN CORPUSCULAR HGB CONC 33.2 g/dl (33.0-37.0); MEAN PLATELET VOLUME 9.8 fl (9.6-12.3); RED BLOOD COUNT 4.61 10*6/uL (4.50-5.90); RED CELL DISTRI WIDTH 12.5 % (0-14.5); WHITE BLOOD COUNT 5.7 10*3/uL (4.8-10.8)
[2023-03-15 13:23] LABS: ALKALINE PHOSPHATASE 94 U/L (46-116); BUN 11 mg/dl (9-23); CHLORIDE 101 mmol/L (98-107); CHOLESTEROL 214 mg/dL (<200); CPK 49 U/L (34-171); LDL CHOLESTEROL 130 mg/dL (9-159); POTASSIUM 3.7 mmol/L (3.4-5.1); SGPT/ALT 12 U/L (10-49); TOTAL PROTEIN 6.9 gm/dL (6.0-8.0); TRIGLYCERIDES 155 mg/dl (<150)
[2023-03-19 19:06] LABS: FREE PSA <0.005 ng/mL (.)
== END | disposition home or self-care (01) ==
LOC: LAB 11:49
PROVIDERS: Family Medicine; ATTEND Radiology Radiation Oncology
DX: C61 Malignant neoplasm of prostate (principal); I10 Essential (primary) hypertension; F41.1 Generalized anxiety disorder; E74.00 Glycogen storage disease, unspecified; R32 Unspecified urinary incontinence; N40.0 Benign prostatic hyperplasia without lower urinary tract symptoms

== ENCOUNTER → 2023-06-07 | Outpatient (CLI) | payer OTHER ==
[2023-06-07 12:42] LABS: ALKALINE PHOSPHATASE 109 U/L (46-116); BUN 11 mg/dl (9-23); CHLORIDE 102 mmol/L (98-107); CHOLESTEROL 180 mg/dL (<200); CPK 67 U/L (34-171); LDL CHOLESTEROL 106 mg/dL (9-159); POTASSIUM 4.1 mmol/L (3.4-5.1); SGPT/ALT 11 U/L (10-49); TOTAL PROTEIN 6.9 gm/dL (6.0-8.0); TRIGLYCERIDES 158 mg/dl (<150)
== END | disposition home or self-care (01) ==
LOC: LAB 11:28
PROVIDERS: ATTEND Family Medicine
DX: I10 Essential (primary) hypertension (principal); E78.00 Pure hypercholesterolemia, unspecified

== ENCOUNTER 2023-07-19 12:35 | Emergency (ER) | payer OTHER ==
[~2023-07-19] VITALS: Ht 185.4 cm; Wt 113.4 kg
[~2023-07-19 12:35] MED LIST changes: -'XANAX1 MG PO; -MIRTAZAPINE15 M2 PO; -PENICILLIN VK500 MG PO
[2023-07-19] MEDS ORDERED: 'XANAX1 MG PO (12:44)
[2023-07-19] MEDS ORDERED: MIRTAZAPINE15 M2 PO (12:44)
[2023-07-19] MEDS ORDERED: TRAMADOL HCL50 MG PO (14:05)
[2023-07-19] MEDS ORDERED: PENICILLIN VK500 MG PO (14:05)
== END 2023-07-19 14:16 | disposition home or self-care (01) ==
LOC: ED 12:35
DX: K08.89 Other specified disorders of teeth and supporting structures (principal); I10 Essential (primary) hypertension; F32.A Depression, unspecified; E78.00 Pure hypercholesterolemia, unspecified; M10.9 Gout, unspecified; M19.90 Unspecified osteoarthritis, unspecified site; M79.7 Fibromyalgia; Z98.890 Other specified postprocedural states; F17.200 Nicotine dependence, unspecified, uncomplicated

== ENCOUNTER → 2023-07-19 | Outpatient (CLI) | payer OTHER ==
[~2023-07-19] MED LIST changes: +'XANAX1 MG PO; +MIRTAZAPINE15 M2 PO; +PENICILLIN VK500 MG PO
== END | disposition home or self-care (01) ==
LOC: LAB 12:19
PROVIDERS: ATTEND Radiology Radiation Oncology
DX: C61 Malignant neoplasm of prostate (principal)

== ENCOUNTER → 2023-09-16 | Outpatient (CLI) | payer OTHER ==
[~2023-09-16] MED LIST changes: +'XANAX1 MG PO; +MIRTAZAPINE15 M2 PO; +PENICILLIN VK500 MG PO
[2023-09-16 11:54] LABS: HEMATOCRIT 47.5 % (42.0-52.0); MEAN CELL VOLUME 94.8 fl (80.0-94.0); MEAN CORPUSCULAR HGB 30.5 pg (27.0-31.0); MEAN CORPUSCULAR HGB CONC 32.2 g/dl (33.0-37.0); MEAN PLATELET VOLUME 9.7 fl (9.6-12.3); RED BLOOD COUNT 5.01 10*6/uL (4.50-5.90); RED CELL DISTRI WIDTH 12.3 % (0-14.5); WHITE BLOOD COUNT 7.2 10*3/uL (4.8-10.8)
[2023-09-16 12:24] LABS: ALKALINE PHOSPHATASE 105 U/L (46-116); BUN 13 mg/dl (9-23); CHLORIDE 102 mmol/L (98-107); CHOLESTEROL 177 mg/dL (<200); CPK 41 U/L (34-171); LDL CHOLESTEROL 92 mg/dL (9-159); POTASSIUM 4.2 mmol/L (3.4-5.1); SGPT/ALT 14 U/L (5-49); TOTAL PROTEIN 7.1 gm/dL (6.0-8.0); TRIGLYCERIDES 206 mg/dl (<150)
[2023-09-16 12:26] LABS: VITAMIN D, 25-HYDROXY 66.2 ng/mL (30-100)
== END | disposition home or self-care (01) ==
LOC: LAB 11:38
PROVIDERS: ATTEND Family Medicine
DX: E74.00 Glycogen storage disease, unspecified (principal); K21.9 Gastro-esophageal reflux disease without esophagitis; E78.00 Pure hypercholesterolemia, unspecified; F41.1 Generalized anxiety disorder; E55.9 Vitamin D deficiency, unspecified; R53.83 Other fatigue

== ENCOUNTER → 2023-11-10 | Outpatient (CLI) | payer OTHER ==
[2023-11-10 12:24] LABS: HEMATOCRIT 47.5 % (42.0-52.0); MEAN CELL VOLUME 93.3 fl (80.0-94.0); MEAN CORPUSCULAR HGB 30.3 pg (27.0-31.0); MEAN CORPUSCULAR HGB CONC 32.4 g/dl (33.0-37.0); MEAN PLATELET VOLUME 9.1 fl (9.6-12.3); RED BLOOD COUNT 5.09 10*6/uL (4.50-5.90); RED CELL DISTRI WIDTH 12.5 % (0-14.5); WHITE BLOOD COUNT 6.3 10*3/uL (4.8-10.8)
[2023-11-10 12:59] LABS: ALKALINE PHOSPHATASE 110 U/L (46-116); BUN 15 mg/dl (9-23); CHLORIDE 102 mmol/L (98-107); CHOLESTEROL 198 mg/dL (<200); CPK 63 U/L (34-171); LDL CHOLESTEROL 113 mg/dL (9-159); POTASSIUM 3.9 mmol/L (3.4-5.1); SGPT/ALT 16 U/L (5-49); TOTAL PROTEIN 7.2 gm/dL (6.0-8.0); TRIGLYCERIDES 157 mg/dl (<150)
== END | disposition home or self-care (01) ==
LOC: LAB 11:55
PROVIDERS: Family Medicine; ATTEND Radiology Radiation Oncology
DX: C61 Malignant neoplasm of prostate (principal); I10 Essential (primary) hypertension; E78.00 Pure hypercholesterolemia, unspecified

== ENCOUNTER → 2024-03-16 | Outpatient (CLI) | payer OTHER ==
[2024-03-16 12:50] LABS: ALKALINE PHOSPHATASE 103 U/L (46-116); BUN 11 mg/dl (9-23); CHLORIDE 101 mmol/L (98-107); CHOLESTEROL 184 mg/dL (<200); CPK 261 U/L (34-171); LDL CHOLESTEROL 107 mg/dL (9-159); POTASSIUM 3.5 mmol/L (3.4-5.1); SGPT/ALT 14 U/L (5-49); TOTAL PROTEIN 6.9 gm/dL (6.0-8.0); TRIGLYCERIDES 138 mg/dl (<150)
== END | disposition home or self-care (01) ==
LOC: LAB 12:13
PROVIDERS: ATTEND Family Medicine
DX: E78.00 Pure hypercholesterolemia, unspecified (principal); I10 Essential (primary) hypertension

== ENCOUNTER → 2024-04-18 | Outpatient (CLI) | payer OTHER | END | disposition home or self-care (01) | LOC: LAB 11:14 | PROVIDERS: ATTEND Radiology Radiation Oncology | DX: C61 Malignant neoplasm of prostate (principal) ==

== ENCOUNTER → 2024-06-11 | Outpatient (CLI) | payer OTHER ==
[2024-06-11 13:10] LABS: MEAN CELL VOLUME 95.1 fl (80.0-94.0); MEAN CORPUSCULAR HGB 30.7 pg (27.0-31.0); MEAN CORPUSCULAR HGB CONC 32.2 g/dl (33.0-37.0); MEAN PLATELET VOLUME 9.4 fl (9.6-12.3); RED BLOOD COUNT 4.73 10*6/uL (4.50-5.90); RED CELL DISTRI WIDTH 12.5 % (0-14.5); WHITE BLOOD COUNT 6.7 10*3/uL (4.8-10.8)
[2024-06-11 13:39] LABS: ALKALINE PHOSPHATASE 88 U/L (46-116); BUN 10 mg/dl (9-23); CHLORIDE 102 mmol/L (98-107); CHOLESTEROL 284 mg/dL (<200); LDL CHOLESTEROL 200 mg/dL (9-159); POTASSIUM 4.5 mmol/L (3.4-5.1); SGPT/ALT 12 U/L (5-49); TOTAL PROTEIN 6.6 gm/dL (6.0-8.0); TRIGLYCERIDES 150 mg/dl (<150)
== END | disposition home or self-care (01) ==
LOC: LAB 12:22
PROVIDERS: ATTEND Family Medicine
DX: Z12.5 Encounter for screening for malignant neoplasm of prostate (principal); E78.00 Pure hypercholesterolemia, unspecified; E55.9 Vitamin D deficiency, unspecified; Z79.899 Other long term (current) drug therapy

== ENCOUNTER → 2024-07-31 | Outpatient (CLI) | payer OTHER ==
[2024-07-31 12:42] LABS: HEMATOCRIT 46.3 % (42.0-52.0); MEAN CELL VOLUME 94.3 fl (80.0-94.0); MEAN CORPUSCULAR HGB 31.2 pg (27.0-31.0); MEAN PLATELET VOLUME 9.5 fl (9.6-12.3); RED BLOOD COUNT 4.91 10*6/uL (4.50-5.90); RED CELL DISTRI WIDTH 12.4 % (0-14.5); WHITE BLOOD COUNT 6.3 10*3/uL (4.8-10.8)
[2024-07-31 13:05] LABS: ALKALINE PHOSPHATASE 102 U/L (46-116); BUN 9 mg/dl (9-23); CHLORIDE 100 mmol/L (98-107); CHOLESTEROL 174 mg/dL (<200); CPK 45 U/L (34-171); LDL CHOLESTEROL 103 mg/dL (9-159); POTASSIUM 4.4 mmol/L (3.4-5.1); SGPT/ALT 15 U/L (5-49); TOTAL PROTEIN 6.9 gm/dL (6.0-8.0); TRIGLYCERIDES 106 mg/dl (<150)
== END | disposition home or self-care (01) ==
LOC: LAB 12:21
PROVIDERS: ATTEND Family Medicine
DX: E78.00 Pure hypercholesterolemia, unspecified (principal)

== ENCOUNTER → 2024-09-13 | Outpatient (CLI) | payer OTHER ==
[2024-09-13 11:24] LABS: HEMATOCRIT 47.2 % (42.0-52.0); MEAN CELL VOLUME 93.3 fl (80.0-94.0); MEAN CORPUSCULAR HGB 30.4 pg (27.0-31.0); MEAN CORPUSCULAR HGB CONC 32.6 g/dl (33.0-37.0); MEAN PLATELET VOLUME 9.5 fl (9.6-12.3); RED BLOOD COUNT 5.06 10*6/uL (4.50-5.90); RED CELL DISTRI WIDTH 12.4 % (0-14.5); WHITE BLOOD COUNT 7.7 10*3/uL (4.8-10.8)
[2024-09-13 11:42] LABS: ALKALINE PHOSPHATASE 109 U/L (46-116); BUN 9 mg/dl (9-23); CHLORIDE 100 mmol/L (98-107); CHOLESTEROL 185 mg/dL (<200); CPK 59 U/L (34-171); LDL CHOLESTEROL 114 mg/dL (9-159); POTASSIUM 4.2 mmol/L (3.4-5.1); SGPT/ALT 16 U/L (5-49); TOTAL PROTEIN 7.2 gm/dL (6.0-8.0); TRIGLYCERIDES 142 mg/dl (<150)
== END | disposition home or self-care (01) ==
LOC: LAB 11:01
PROVIDERS: ATTEND Family Medicine
DX: R06.02 Shortness of breath (principal); I10 Essential (primary) hypertension; E78.00 Pure hypercholesterolemia, unspecified; R05.9 Cough, unspecified

== ENCOUNTER → 2024-11-13 | Outpatient (CLI) | payer OTHER ==
[2024-11-13 12:47] LABS: POTASSIUM 4.2 mmol/L (3.4-5.1)
== END | disposition home or self-care (01) ==
LOC: LAB 11:56
PROVIDERS: ATTEND Family Medicine
DX: N18.30 Chronic kidney disease, stage 3 unspecified (principal); R94.4 Abnormal results of kidney function studies

== ENCOUNTER → 2024-11-22 | Outpatient (CLI) | payer OTHER ==
[2024-11-22 12:28] LABS: POTASSIUM 4.5 mmol/L (3.4-5.1)
== END | disposition home or self-care (01) ==
LOC: LAB 11:41
PROVIDERS: ATTEND Family Medicine
DX: C61 Malignant neoplasm of prostate (principal); N18.30 Chronic kidney disease, stage 3 unspecified

== ENCOUNTER → 2024-12-27 | Outpatient (CLI) | payer OTHER ==
[2024-12-27 12:16] LABS: POTASSIUM 4.6 mmol/L (3.4-5.1)
== END | disposition home or self-care (01) ==
LOC: LAB 11:38
PROVIDERS: ATTEND Family Medicine
DX: N18.30 Chronic kidney disease, stage 3 unspecified (principal)

== ENCOUNTER → 2025-01-08 | Outpatient (CLI) | payer OTHER | END | disposition home or self-care (01) | LOC: LAB 03:19 | PROVIDERS: ATTEND Family Medicine | DX: N18.30 Chronic kidney disease, stage 3 unspecified (principal) ==

== ENCOUNTER → 2025-04-30 | Outpatient (CLI) | payer OTHER ==
[2025-04-30 11:18] LABS: MEAN CELL VOLUME 95.4 fl (80.0-94.0); MEAN CORPUSCULAR HGB 31.5 pg (27.0-31.0); MEAN PLATELET VOLUME 8.9 fl (9.6-12.3); NUCLEATED RED BLOOD CELL 0.0 % (0.0-0.0); NUCLEATED RED BLOOD CELL 0.0 10*3/uL (0.0-0.0); PLATELET COUNT AUTOMATED 195.0 10*3/uL (130-400); RED CELL DISTRI WIDTH 12.7 % (0-14.5)
[2025-04-30 12:08] LABS: BUN 10 mg/dl (9-23); LDL CHOLESTEROL 167 mg/dL (9-159); SGPT/ALT 14 U/L (5-49)
[2025-04-30 12:11] LABS: VITAMIN D, 25-HYDROXY 93.1 ng/mL (30-100)
== END | disposition home or self-care (01) ==
LOC: LAB 10:55
PROVIDERS: ATTEND Family Medicine
DX: I10 Essential (primary) hypertension (principal); E78.00 Pure hypercholesterolemia, unspecified; E55.9 Vitamin D deficiency, unspecified; J44.9 Chronic obstructive pulmonary disease, unspecified; K21.9 Gastro-esophageal reflux disease without esophagitis; Z12.5 Encounter for screening for malignant neoplasm of prostate; R53.83 Other fatigue; G47.00 Insomnia, unspecified

== ENCOUNTER → 2025-07-24 | Outpatient (CLI) | payer OTHER ==
[2025-07-24 13:20] LABS: MEAN CELL VOLUME 96.7 fl (80.0-94.0); MEAN CORPUSCULAR HGB 32.0 pg (27.0-31.0); MEAN PLATELET VOLUME 9.6 fl (9.6-12.3); NUCLEATED RED BLOOD CELL 0.0 % (0.0-0.0); NUCLEATED RED BLOOD CELL 0.0 10*3/uL (0.0-0.0); PLATELET COUNT AUTOMATED 195.0 10*3/uL (130-400); RED CELL DISTRI WIDTH 12.5 % (0-14.5)
[2025-07-24 13:44] LABS: BUN 10 mg/dl (9-23); CPK 49 U/L (34-171); LDL CHOLESTEROL 127 mg/dL (9-159); SGPT/ALT 17 U/L (5-49)
== END | disposition home or self-care (01) ==
LOC: LAB 12:40
PROVIDERS: ATTEND Family Medicine
DX: I12.9 Hypertensive chronic kidney disease with stage 1 through stage 4 chronic kidney disease, or unspecified chronic kidney disease (principal); N18.2 Chronic kidney disease, stage 2 (mild); K21.9 Gastro-esophageal reflux disease without esophagitis